=== PATIENT | male | born 1940 | race Caucasian/White ===

== ENCOUNTER 2017-03-14 05:55 | Inpatient (IN) | payer MEDICARE ==
[~2017-03-14] VITALS: Ht 170.2 cm; Wt 87.9 kg
[2017-03-14] VITALS (13 sets, daily range): BP systolic 111–131; BP diastolic 62–85; PULSE 86–136; RESP 16–17; TEMP 97.5–98.2; O2SAT 96–100
[2017-03-14] MEDS ORDERED: IOHEXOL 350 MG/ML 50 ML BTL (for Cath Lab) OTHER ONE (05:56)
[2017-03-14] MEDS ORDERED: RANI150T PO (07:02)
[2017-03-14] MEDS ORDERED: ASPI-516 CHEW (07:02)
[2017-03-14] MEDS ORDERED: NIAC500T5 PO (07:02)
[2017-03-14] MEDS ORDERED: WARF-23 PO (07:02)
[2017-03-14] MEDS ORDERED: OMEGCAP PO (07:02)
[2017-03-14] MEDS ORDERED: METO50TA PO (07:02)
[2017-03-14] MEDS ORDERED: TYLE325T PO (07:02)
[2017-03-14] MEDS ORDERED: HEPARIN-NS/PF INJ 1,000 ML ONE (08:36)
[2017-03-14] MEDS ORDERED: MIDAZOLAM HCL 2 MG/2 ML VIAL ONE (08:43)
[2017-03-14] MEDS ORDERED: HEPARIN SODIUM - IV 10,000 UNITS/10 ML VIAL ONE (08:45)
--- NOTE | 2017-03-14 09:29 | CATHPROC ---
[facility] HIS Report Study Information Study Number Admission Scheduled Start Study Start [id number] Mar 14 2017 5:55AM 03/14/2017 Mar 14 2017 8:39AM [facility] Cardiac Catheterization Admit Source Facility Department Other [facility] - Stock Sheets Cleaner Inspector Physician and Clinical Staff Initial Gallito Jang Employment Appeals Examinernir Morfin RN, Gibran Recorder Hailey Durant,RT(R) (BS) Scrub Willis Tejeda RCIS(BS) Scrub Butch Belle RN Procedures Performed Procedure Location (Site) Vessel Name Coronary Angiograms LCA Left Coronary Coronary Angiograms RCA Right Coronary Coronary Angiograms TORRES TORRES L Heart Cath Wire insertion Radial (right) Radial Art. Equipment Time Binder Stripper Hand Description Size Mfg Part Number Used/Scraped TRANSDUCER, TRUWAVE [id number] 08:44 [employer] CAMPOS * Used W/STOCKCOCK *[id number] *[id number] *[id number] 08:44 [employer] PACK, CCL CUSTOM * Used *[id number] 08:44 [employer] SUPPORT, ARTERIAL ADULT 33267 *[id number] Used [id number] 08:44 [employer]. PACER PEN, SKIN DUAL W/ RULER * Used *[id number] BAND, RADIAL COMPRESSION TR [id number] 09:16 [employer] MEDICAL 24CM Used SHORT 24 *[id number] SHEATH, FR6 RADIAL PRELUDE 08:44 [employer] FR 6 [id number] Used EASE 11CM [id number] 08:44 [employer] WIRE, EXCHANGE 260CM 3MMJ 260CM Used *[id number] 08:44 [employer] OMNIPAQUE, 350 MG, 150ML 150ML [id number] Used [id number] 08:44 [employer] BLANKET,WARM AIR CCL * Used *[id number] History: Current Medications Medication Dosage/Unit Route Frequency Last Date/Time Taken Beta Luke ASA Coumadin History: Allergies Allergy Reaction Kpajrfe-Lcw-Bxb Reductase Inhibitor History: Risk Factors Family History of Hypertension Dyslipidemia Previous VT Previous Heart Failure Premature CAD Yes Yes No No Yes Prior Valve Prior PCI Prior CABG Surgery No No No Cerebrovascular Peripheral Artery Chronic Lung On Dialysis Diabetes Disease Disease Disease No No No No No History: Stress Tests Stress or Imaging Studies Performed Yes Standard Exercise Stress Test No Stress Echo No Stress Test SPECT Stress Test SPECT Result Stress Test SPECT Ischemia Risk/Extent Yes Positive High Stress Test CMR No Cardiac CTA Coronary Calcium Score No No History: Other Current Smoker Method Quit Packs a Day No Cigarettes 39 Years Ago 1 Labs Hgb (g/dl) Hct (%) WBC (l/cumm) Platelets (thousands) 11.60-17.00 35.00-51.00 4.00-11.00 150.00-450.00 15.0 45.1 7 148 Glucose (mg/dl) BUN (mg/dl) Creatinine (mg/dl) BUN:Creatinine (1:x) 74.00-106.00 7.00-18.00 0.50-1.30 10.00-20.00 111 19 1.6 11.9 Na (meq/l) K (meq/l) 136.00-145.00 3.50-5.10 140 4.8 CPK-MB (ng/ML) 0.50-3.60 Not Drawn Medication Medication Total Dose (Bolus/Oral) Medication Total Dosage/Unit 1% XYLOCAINE 1 mL FENTANYL 50 mcg HEPARIN 3000 units NTG (IC) 200 mcg VERSED 2 mg Medications (Bolus/Oral) Medication Time Given Dosage/Unit Administered By Reason FENTANYL 03/14/2017 8:58:30 AM 50 mcg Gibran Morfin RN 50 mcg FENTANYL given in lab by Gibran Morfin RN in Left Antecubital via Peripheral IV. VERSED 03/14/2017 8:59:18 AM 2 mg Gibran Morfin RN 2 mg VERSED given in lab by Gibran Morfin RN in Left Antecubital via Peripheral IV. 1% XYLOCAINE 03/14/2017 9:01:06 AM 1 mL Gallito Armijo 1 mL 1% XYLOCAINE given in lab by Gallito Armijo in Right Radial via Subcutaneous. HEPARIN 03/14/2017 9:03:49 AM 3000 units Gibran Morfin RN 3000 units HEPARIN given in lab by Gibran Morfin RN in Left Antecubital via Peripheral IV. NTG (IC) 03/14/2017 9:04:12 AM 200 mcg Gallito Armijo 200 mcg NTG (IC) given in lab by Gallito Armijo in Right Radial via Intra-arterial. Medication (Drip) Medication Time Given Dosage/Unit Concentration/Unit Diluent (ml) Solution IV Solutions 03/14/2017 8:39:08 AM 0 mL (IV) 500 NaCl .9 IV Solutions given in lab by Gibran Morfin RN in Left Antecubital via Peripheral IV. Pump/Drip Flow = 20 ml/hr using NaCl .9. Initial Case Assessment Cardiovascular HR Rhythm NIBP Chest Pain 92 afib 132/94 0 Edema Present Skin color Skin None Normal Warm Dry Circulatory - Right Pulses Dorsalis Pedis Femoral Radial 2 3 1 Scale (0,1,2,3,4,d) Circulatory - Left Pulses Dorsalis Pedis Femoral Radial 2 3 Scale (0,1,2,3,4,d) Circulatory - Lower Extremities Color Lower Right Color Lower Left Normal Normal Neurological State Oriented to time-place- Alert Moves all extremities person Respiration - General Respiration Rate SpO2 (%) (B/min) 16 99 Chronological Log Time Study Chronological Log 8:33:41 Patient arrived via Bed. 8:33:45 Patient Name, D.O.B, / Armband Verified By R.N. 8:33:47 Consent signed by the physician and the patient and verified by the Stock Sheets Cleaner Inspector staff. 8:33:49 Pre-op and post- op instructions given; patient acknowledges understanding of instructions. 8:38:52 Verbal Stimulation=2 Physical Stimulation=2 Airway=2 Respiration=2 TOTAL=8. (0=absent, 1=li mited, 2=present) 8:38:54 Presedation assessment performed by Stock Sheets Cleaner Inspector RN. 8:38:59 Allens test performed on the right radial and ulnar artery. 8:39:00 Immediate Presedation assesment performed by physician. 8:39:03 Patient has been NPO for More than 6Hrs. 8:39:03 Skin Breakdown none per pt 8:39:04 Patient Warmer Placed on the Table. 8:39:06 Tena Prominences Protected 8:39:07 A # 20 IV was noted in the Antecubital (left). Grade = 0 IV Solutions given in lab by Gibran Morfin RN in Left Antecubital via Peripheral IV. Pump/Drip Fl ow = 20 ml/hr using NaCl 8:39:08 .9. 8:39:09 History and physical on the chart or being dictated. Assessment: Initial Case, HR=92 BPM, Rhythm=afib, KCXO=890/94 mmhg, Chest Pain=0, Edema=None, Color=Normal, Skin = Warm, Dry Right Pulses: Froylan Ped=2, Femoral=3, Radial=1 Left Pulses: Froylan Ped=2, Femoral=3 8:39:10 Lower Right Extremities: Color=Normal Lower Left Extremities: Color=Normal Neurological: State=Alert, Ox3, VERDE Respiration: Resp=16 B/min, SpO2=99 % Vitals capture started with the following parameters, Patient=Adult, Interval=5 min, Initial Pre tezbf=092 mmHg, 8:40:15 Deflation Rate=5 mmHg, Cuff placed on Right Arm 8:41:16 VU=255 bpm, JABN=498/94 mmhg, SpO2=99.0 %, Resp=17 B/min, Pain=0, Edelmira=10, Collier=2 8:45:37 Right Radial and righ groin prepped with 2% chlorhexidine, and draped after a 3 min. waiting time. 8:45:46 MZ=607 bpm, CTDU=224/99 mmhg, Resp=13 B/min, Pain=0, Edelmira=10, Collier=2 8:50:07 MD paged 8:50:33 MD responded 8:50:49 MU=799 bpm, WYFV=004/87 mmhg, SpO2=99.0 %, Resp=15 B/min, Pain=0, Edelmira=10, Collier=2 8:50:51 Reference ECG taken 8:52:19 Pressure channel 1 zeroed. 8:55:59 MD arrived. 8:56:29 CD=753 bpm, ZFEV=644/66 mmhg, SpO2=98.0 %, Resp=13 B/min, Pain=0, Edelmira=10, Collier=2 8:58:30 50 mcg FENTANYL given in lab by Gibran Morfin RN in Left Antecubital via Peripheral IV. Time Out. Correct patient, correct procedure, correct physician, power injector not loaded with contrast with surgical 8:58:58 team present. Time Out Concurred by MD and individual staff in procedure. 8:59:09 Case Start 8:59:18 2 mg VERSED given in lab by Gibran Morfin RN in Left Antecubital via Peripheral IV. 9:00:47 VD=617 bpm, TRNW=964/80 mmhg, SpO2=94.0 %, Resp=22 B/min, Pain=0, Edelmira=10, Collier=2 9:01:06 1 mL 1% XYLOCAINE given in lab by Gallito Armijo in Right Radial via Subcutaneous. 9:01:27 Access site was right Radial Artery. A SHEATH, FR6 RADIAL PRELUDE EASE 11CM FR 6 was advanced into the Radial (right) using the Jay Jay raymond ::11 technique. 9:03:11 In the Radial (right) the SHEATH, FR6 RADIAL PRELUDE EASE 11CM FR [address] by Butch Belle RN. 9:03:49 3000 units HEPARIN given in lab by Gibran Morfin RN in Left Antecubital via Peripheral IV. 9:04:12 200 mcg NTG (IC) given in lab by Gallito Armijo in Right Radial via Intra-arterial. A JR 5.0 INFINITI CATHETER FR 6 was advanced over a wire. OMNIPAQUE, 350 MG, 150ML 150ML was use d for 9:04:54 injections. 9:05:51 HR=98 bpm, VKPI=971/63 mmhg, SpO2=96.0 %, Resp=16 B/min, Pain=0, Edelmira=10, Collier=2 Recorded Pressure: LV, DJ=847, Condition=Condition 1 9:06:29 (Left Ventricle) LV 104/5/5 Recorded Pressure: LV, Ao, VP=919, Condition=Condition 1 9:06:49 (Left Ventricle) LV 95/3/4, (Aorta) Ao 97/55/75 9:07:21 The RCA was injected and visualized at various angles. OMNIPAQUE, 350 MG, 150ML 150ML used. After removing the current catheter a JL 3.5 INFINITI CATHETER FR 6 was advanced over a WIRE, EX CHANGE 260CM 9:08:06 3MMJ 260CM. Recorded Pressure: Ao, HR=99, Condition=Condition 1 9:10:32 (Aorta) Ao 106/63/82 9:10:46 DJ=359 bpm, FTSA=352/78 mmhg, SpO2=97.0 %, Resp=26 B/min 9:10:46 The LCA was injected and visualized at various angles. OMNIPAQUE, 350 MG, 150ML 150ML use d. 9:15:28 Vitals capture stopped. Vitals capture started with the following parameters, Patient=Adult, Interval=5 min, Initial P wiajotb=246 mmHg, 9:15:30 Deflation Rate=5 mmHg, Cuff placed on Right Arm 9:16:24 The TORRES was injected and visualized at various angles. OMNIPAQUE, 350 MG, 150ML 150ML use d. 9:16:41 A WIRE, EXCHANGE 260CM 3MMJ 260CM was inserted via Radial (right). 9:16:42 GO=699 bpm, ZBJK=858/73 mmhg, SpO2=98.0 %, Resp=17 B/min, Pain=0, Edelmira=10, Collier=2 9:16:52 Catheter was removed 9:16:54 Wire removed 9:17:07 Case End 9:17:18 Catheter(s) removed without difficulty Radial Compression Device Used. 12 mLs of air placed in BAND, RADIAL COMPRESSION TR SHORT 24 2 4CM. Affected 9:17:27 hand 100 % O2 saturation. 9:17:42 Cine recording checked. 9:17:45 Bedside Report will be given. 9:17:49 Contrast Scanned 9:17:54 A Left Heart Cath was performed. 9:20:52 DOCU called. Spoke to Robel. 9:21:06 IE=024 bpm, GOON=486/60 mmhg, SpO2=98.0 %, Resp=12 B/min, Pain=0, Edelmira=10, Collier=2 9:26:05 HR=94 bpm, RDQG=549/63 mmhg, Resp=15 B/min, Pain=0, Edelmira=10, Collier=2 9:27:57 [facility] - Cont[facility] Media Used In Study Contrast Total Opened (mL) Total Used (mL) Total Wasted (mL) Omnipaque 40 40 0 End Study - Maximum Contrast Load Max Contrast Load (mL) 263.1 End Study - Radiation Exposure Fluoro Time (minutes) 2.2 End Study - Sheaths Sheaths Pulled By Sheath Hold Time (min) Butch Belle End Study - Patient Disposition Complications Transferred To Interventional Outcome No Stock Sheets Cleaner Inspector Holding No attempt made
[2017-03-14] MEDS ORDERED: BACITRACIN OINT 0.9 GM PKT TOP ONE ×2 (09:30→10:45)
[2017-03-14] MEDS ORDERED: MISC INFORMATION XX ONE ×2 (09:30)
--- NOTE | 2017-03-14 09:34 | ECHRPT ---
Indication: CARDIOMYOPATHY CONCLUSIONS Mildly dilated left ventricle. Wall thickness is normal. The left ventricular systolic function is severely reduced with an estimated ejection fraction in th e range of 25-30%. There is diffuse global hypokinesis with distinct regional wall motion abnormalities. The left atrial size is moderately dilated. The right atrial size is moderately dilated. Moderate mitral valve regurgitation. Aortic valve sclerosis is present. Trace aortic valve regurgitation. There is mild tricuspid valve regurgitation. The estimated pulmonary arterial pressure is 43.4 mmHg. BP: 131 / 85 HR: Rhythm: Atrial fibrillation, Atrial flut ter MEASUREMENTS (Male / Female) Normal Values Technical Quality:Fair 2D ECHO LV Diastolic Diameter PLAX 5.6 cm 4.2 - 5.9 / 3.9 - 5.3 cm LV Systolic Diameter PLAX 5.0 cm IVS Diastolic Thickness 0.8 cm 0.6 - 1.0 / 0.6 - 0.9 cm LVPW Diastolic Thickness 0.8 cm 0.6 - 1.0 / 0.6 - 0.9 cm LV Relative Wall Thickness 0.3 LVOT Diameter 2.2 cm Aortic Root Diameter 3.4 cm LA Systolic Diameter LX 3.8 cm 3.0 - 4.0 / 2.7 - 3.8 cm LA Volume Index 63.9 cm/m 16 - 28 cm/m M-MODE AV Cusp Separation MM 2.3 cm DOPPLER AV Peak Velocity 81.3 cm/s AV Peak Gradient 2.6 mmHg AV Mean Gradient 1.3 mmHg AV Velocity Time Integral 12.7 cm LVOT Peak Velocity 44.1 cm/s LVOT Peak Gradient 0.8 mmHg LVOT Velocity Time Integral 7.0 cm AV Area Cont Eq vti 2.1 cm AV Area Cont Eq pk 2.1 cm Mitral E Point Velocity 75.5 cm/s LV E' Lateral Velocity 15.4 cm/s Mitral E to LV E' Lateral Ratio 4.9 LV E' Septal Velocity 10.3 cm/s Mitral E to LV E' Septal Ratio 7.4 TR Peak Velocity 289.0 cm/s TR Peak Gradient 33.4 mmHg Right Atrial Pressure 10.0 mmHg Pulmonary Artery Systolic Pressu 43.4 mmHg Right Ventricular Systolic Press 43.4 mmHg PV Peak Velocity 48.4 cm/s PV Peak Gradient 0.9 mmHg FINDINGS LEFT VENTRICLE Mildly dilated left ventricle. Wall thickness is normal. The left ventricular systolic function is severely reduced with an estimated ejection fraction in th e range of 25-30%. There is diffuse global hypokinesis with distinct regional wall motion abnormalities. RIGHT VENTRICLE Normal right ventricular size and systolic function. LEFT ATRIUM The left atrial size is moderately dilated. RIGHT ATRIUM The right atrial size is moderately dilated. ATRIAL SEPTUM Normal atrial septal thickness without atrial level shunting by limited color doppler interrogation. AORTA The aortic root and proximal ascending aorta are normal in size on limited imaging. MITRAL VALVE Moderate mitral valve regurgitation. AORTIC VALVE Trileaflet aortic valve. Aortic valve sclerosis is present. Trace aortic valve regurgitation. TRICUSPID VALVE There is mild tricuspid valve regurgitation. The estimated pulmonary arterial pressure is 43.4 mmHg. PULMONARY VALVE No pulmonary valve regurgitation or stenosis. VESSELS The inferior vena cava is normal in size. PERICARDIUM No pericardial effusion. Gallito Armijo MD, FACC (Electronically Signed) Final Date:14 March 2017 09:33
--- NOTE | 2017-03-14 09:47 | MA ---
cc: SIMRAN WADE DATE: 03/14/2017 PROCEDURE PERFORMED 1. Fluoroscopy with interpretation. 2. Left heart catheterization. 3. Coronary angiography. METHOD The risks, benefits and alternatives were discussed with the patient. The patient understood and consented to the procedure. The patient was brought into the catheterization lab and placed on the catheterization table. The right wrist was prepped and draped in sterile fashion. The right wrist was anesthetized with 2% lidocaine. The right radial artery was cannulated and a 6 Upper Sorbian, 7 cm sheath was placed without difficulty. 200 mcg of intra-arterial nitroglycerin in addition to 3000 units of intravenous heparin was administered. LEFT HEART CATHETERIZATION Intraventricular hemodynamics measured at 115/5 mmHg. No aortic stenosis by transaortic valvular pullback gradient. CORONARY ANGIOGRAPHY 1. The left main coronary is angiographically normal. 2. The left anterior descending coronary has a 90% ostial stenosis which leads to a large diagonal branch which also has a 90% bifurcation stenosis. The remainder of the left anterior descending and diagonal branches are widely patent. 3. The left circumflex is a dominant vessel giving rise to a posterior descending branch. The ostium of the left circumflex has an angulated 30% stenosis. There is a small obtuse marginal branch with a 75% stenosis but otherwise the circumflex territory has only minor luminal irregularities. 4. The right coronary is non-dominant but angiographically normal. CONCLUSIONS 1. 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 2. Normal left-sided filling pressures. PLAN Given the location is high risk for plaque shift into a dominant circumflex, in addition to there being a bifurcation stenosis at the level of the left main, he would not be an ideal percutaneous revascularization candidate. He has good targets for left anterior descending and diagonal branch bypass. His risk is considerably higher for intervention also given his cardiomyopathy which is ischemic. Will consult cardiothoracic surgery. Will initiate a heparin drip. MD RONAK Saha/MATT /9:37 AM /9:45 AM
[2017-03-14 09:51] LABS: APTT (PATIENT) 56.3 SEC (24.3-30.1); INTERNATIONAL NORMALIZED RATIO 1.2 RATIO; PROTHROMBIN TIME - PATIENT 13.5 SEC (9.8-11.6)
[2017-03-14] MEDS ORDERED: HEPARIN-D5W 25,000 U/250 ML 250 ML IV PRN (11:30)
[2017-03-14] MEDS: NS 1000 ML @100 MLS/HR IV SCH ×4 (12:00→20:15)
--- NOTE | 2017-03-14 12:16 | RADRPT ---
EXAM DATE/TIME: 03/14/2017 11:22 [facility] COMPARISON: No previous studies available for comparison. INDICATIONS : Pre op CABG. MEDICAL HISTORY : Congestive heart failure. Hypertension. A FIB. Hyperlipidemia. SURGICAL HISTORY : Heart catheteriazation. ENCOUNTER: Initial ACUITY: 1 day PAIN SCORE: 0/10 LOCATION: Bilateral neck. PEAK SYSTOLIC VELOCITIES (cm/sec): ICA/CCA RATIO: Right: 3.0 Left: 1.3 ICA: Right: 131 Left: 89 CCA: Right: 44 Left: 70 ECA: Right: 50 Left: 67 VERTEBRAL: Right: 57 antegrade Left: 45 antegrade Elevated flow velocities and ICA/CCA ratios have been found to correlate with increased degrees of vessel stenosis, calculated as percentage of diameter relative to a normal segment of distal ICA/CCA FINDINGS: RIGHT CAROTID: Mild noncalcified plaque seen at the bifurcation. No significant stenosis is visualized. The wavefor ms are within normal limits. There is mild elevation in the right internal carotid artery but no sign ificant stenosis is demonstrated. LEFT CAROTID: Mild calcified plaque in the bifurcation. No significant stenosis is visualized. The waveforms are w ithin normal limits. VERTEBRAL ARTERIES: Antegrade flow is seen in both vertebral arteries. MISCELLANEOUS: None. CONCLUSION: 1. There is mild atherosclerotic plaquing bilaterally. 2. No focal high-grade or hemodynamically significant stenosis is demonstrated. Jaswinder Rubi MD on March 14, 2017 at 12:13 Board Certified Radiologist. This report was verified electronically.
--- NOTE | 2017-03-14 12:19 | RADRPT ---
EXAM DATE/TIME: 03/14/2017 11:34 [facility] COMPARISON: No previous studies available for comparison. INDICATIONS : Pre op cardiac surgery. MEDICAL HISTORY : Hypertension. Congestive heart failure. A FIB. Hyperlipidemia. SURGICAL HISTORY : Heart catheteriazation. ENCOUNTER: Initial ACUITY: 1 day PAIN SCORE: 0/10 LOCATION: Bilateral legs. TECHNIQUE: Venous ultrasound of the left and right leg was performed from the inguinal ligament to the proximal calf. Real-time, color Doppler and spectral tracing, compression and augmentation techniques were us ed. FINDINGS: RIGHT LEG: There is normal compressibility of the deep venous system from the inguinal region to the proximal ca lf. No echogenic clot is seen in the lumen of the common femoral, femoral, popliteal, and posterior tibial veins. There is a normal response of the venous system to proximal and distal augmentation an d respiration. LEFT LEG: There is normal compressibility of the deep venous system from the inguinal region to the proximal ca lf. No echogenic clot is seen in the lumen of the common femoral, femoral, popliteal, and posterior tibial veins. There is a normal response of the venous system to proximal and distal augmentation an d respiration. CONCLUSION: No evidence of DVT. Jaswinder Rubi MD on March 14, 2017 at 12:18 Board Certified Radiologist. This report was verified electronically.
--- NOTE | 2017-03-14 12:20 | RADRPT ---
EXAM DATE/TIME: 03/14/2017 11:43 [facility] COMPARISON: No previous studies available for comparison. INDICATIONS : Pre op cardiac surgery. MEDICAL HISTORY : Hypertension. Congestive heart failure. A FIB. Hyperlipidemia. SURGICAL HISTORY : Heart catheterization. ENCOUNTER: Initial ACUITY: 1 day PAIN SCORE: 0/10 LOCATION: Bilateral legs. GREATER SAPHENOUS VEIN THIGH: PROXIMAL: Right 5 mm Left 9 mm MID: Right 3 mm Left 4 mm DISTAL: Right 2 mm Left 3 mm CALF: PROXIMAL: Right 1 mm Left 2 mm MID: Right 1 mm Left 1 mm DISTAL: Right 1 mm Left 1 mm FINDINGS: The venous system of the lower extremities are patent by color Doppler imaging. Measurements of the leg veins (in mm) are listed above. CONCLUSION: Venous mapping as above Jaswinder Rubi MD on March 14, 2017 at 12:19 Board Certified Radiologist. This report was verified electronically.
[2017-03-14 14:29] LABS: HEMATOCRIT 42.1 % (39.0-51.0); MEAN CELL VOLUME 90.3 FL (80.0-100.0); MEAN CORPUSCULAR HGB CONC 34.3 % (32.0-36.0); PLATELET COUNT 133 TH/MM3 (150-450); RED BLOOD COUNT 4.66 MIL/MM3 (4.50-5.90); RED CELL DISTRIBUTION WIDTH 14.2 % (11.6-17.2); REVIEW FLAG FINAL; WHITE BLOOD COUNT 6.6 TH/MM3 (4.0-11.0)
[2017-03-14 15:13] LABS: BLOOD, URINE NEG (NEG); COMMENT (UR) CULT NOT INDICATED; CULTURE IF INDICATED CULT NOT INDICATED; GLUCOSE,URINE 150 mg/dL (NEG); KETONE, URINE NEG (NEG); NITRITE,URINE NEG (NEG); PH, URINE 5.5 (5.0-8.5); URINE COLOR YELLOW (YELLW/STRAW)
--- NOTE | 2017-03-14 16:20 | PD.CAR.PN ---
CVT Progress Note Subjective/Hospital Course: sts data discussed with pt RISK SCORES About the STS Risk Calculator Procedure: CAB Only Risk of Mortality: 2.77% Morbidity or Mortality: 20.808% Long Length of Stay: 7.256% Short Length of Stay: 34.531% Permanent Stroke: 1.333% Prolonged Ventilation: 10.514% DSW Infection: 0.321% Renal Failure: 5.826% Reoperation: 8.324% Objective: Vital Signs Date Time Temp Pulse Resp B/P (MAP) Pulse Ox O2 Delivery O2 Flow Rate FiO2 03/14/17 16:00 102 03/14/17 15:00 109 03/14/17 15:00 97.8 101 16 123/72 (89) 97 03/14/17 14:11 108 03/14/17 13:26 97.5 105 16 111/62 (78) 97 03/14/17 13:26 102 03/14/17 09:45 98 Room Air 03/14/17 06:41 97.6 98 17 131/85 (100) 100 Labs: Laboratory Tests Test 03/14/17 09:20 03/14/17 14:12 03/14/17 14:42 Prothrombin Time 13.5 SEC (9.8-11.6) Prothromb Time International Ratio 1.2 RATIO Activated Partial Thromboplast Time 56.3 SEC (24.3-30.1) White Blood Count 6.6 TH/MM3 (4.0-11.0) Red Blood Count 4.66 MIL/MM3 (4.50-5.90) Hemoglobin 14.5 GM/DL (13.0-17.0) Hematocrit 42.1 % (39.0-51.0) Mean Corpuscular Volume 90.3 FL (80.0-100.0) Mean Corpuscular Hemoglobin 31.0 PG (27.0-34.0) Mean Corpuscular Hemoglobin Concent 34.3 % (32.0-36.0) Red Cell Distribution Width 14.2 % (11.6-17.2) Platelet Count 133 TH/MM3 (150-450) Mean Platelet Volume 9.4 FL (7.0-11.0) Urine Color YELLOW (YELLW/STRAW) Urine Turbidity CLEAR (CLEAR) Urine pH 5.5 (5.0-8.5) Urine Specific [place] 1.047 (1.002-1.035) Urine Protein TRACE mg/dL (NEG-TRACE) Urine Glucose (UA) 150 mg/dL (NEG) Urine Ketones NEG mg/dL (NEG) Urine Occult Blood NEG (NEG) Urine Nitrite NEG (NEG) Urine Bilirubin NEG (NEG) Urine Urobilinogen LESS THAN 2.0 MG/DL (LESS Urine Leukocyte Esterase NEG (NEG) Urine RBC 1 /hpf (0-3) Urine WBC 1 /hpf (0-5) Microscopic Urinalysis Comment CULT NOT INDICATED Result Diagram: 03/14/17 1412 Kandice Snyder Mar 14, 2017 16:20
[2017-03-14] MEDS ORDERED: CEFAZOLIN INJ 500 MG in SODIUM CHLORIDE 0.9% IRR BTL 500 ML IRRIGATION SCH (16:30)
[2017-03-14] MEDS ORDERED: CHLORHEXIDINE GLUCONATE 4% SOLN 120 ML BTL TOPICAL SCH (16:30)
[2017-03-14] MEDS ORDERED: ceFAZolin 2 GM PREMIX 50 ML IV SCH (16:30)
[2017-03-14] MEDS ORDERED: SODIUM CHLORIDE 0.9% FLUSH 10 ML FLUSH IV FLUSH PRN (16:30)
[2017-03-14] MEDS ORDERED: PAPAVERINE INJ 60 MG, NITROGLYCERIN INJ 100 MCG, DILTIAZEM INJ 100 MG in SODIUM CHLORID... IRRIGATION SCH (16:30)
[2017-03-14] MEDS ORDERED: METOPROLOL TARTRATE 25 MG TAB PO SCH (16:30)
[2017-03-14] MEDS ORDERED: ATROPINE SULFATE 1 MG/10 ML SYRINGE ONE (16:53)
[2017-03-14] MEDS ORDERED: EPINEPHrine HCL (1:10,000) 1 MG/10 ML SYRINGE ONE (16:53)
[2017-03-14] MEDS ORDERED: DEXTROSE 50% IN WATER 50 ML VIAL(D50) IV PUSH PRN (17:00)
[2017-03-14] MEDS ORDERED: GLUCAGON 1 MG/ML VIAL OTHER PRN (17:00)
[2017-03-14 17:21] LABS: HEMOGLOBIN A1b 1.7 %; HEMOGLOBIN Ao 84.3 %; HEMOGLOBIN LA1C 2.4 %; HEMOGLOBIN P3 5.6 %
[2017-03-14 17:53] LABS: AUTOMATED NEUTROPHIL # 4.8 TH/MM3 (1.8-7.7); BASOPHIL % 0.6 % (0.0-2.0); EOSINOPHIL # 0.1 TH/MM3 (0-0.4); EOSINOPHIL % 1.3 % (0.0-4.0); HEMATOCRIT 43.6 % (39.0-51.0); HEMO FLAGS DIFF FINAL; LYMPH % 19.2 % (9.0-44.0); LYMPHOCYTE # 1.4 TH/MM3 (1.0-4.8); MEAN CELL VOLUME 90.7 FL (80.0-100.0); MEAN CORPUSCULAR HEMOGLOBIN 31.2 PG (27.0-34.0); MEAN CORPUSCULAR HGB CONC 34.4 % (32.0-36.0); MONO % 10.8 % (0.0-8.0); NEUT % 68.1 % (16.0-70.0); PLATELET COUNT 136 TH/MM3 (150-450); RED CELL DISTRIBUTION WIDTH 13.8 % (11.6-17.2)
[2017-03-14] MEDS ORDERED: INSULIN REGULAR (IV INFUSION) 100 UNITS in SODIUM CHLORIDE 0.9% INJ 99 ML IV PRN (18:00)
[2017-03-14 18:01] LABS: APTT (PATIENT) 24.3 SEC (24.3-30.1)
[2017-03-14 18:13] LABS: ALT (GPT) 30 U/L (12-78); ANION GAP 9 MEQ/L (5-15); AST (GOT) 26 U/L (15-37); BICARBONATE 25.8 MEQ/L (21.0-32.0); BLOOD UREA NITROGEN 25 MG/DL (7-18); CHLORIDE 105 MEQ/L (98-107); GLOMERULAR FILTRATION RATE 42 ML/MIN (>89); POTASSIUM 4.4 MEQ/L (3.5-5.1); SODIUM (NA) 140 MEQ/L (136-145)
[2017-03-14 18:16] LABS: ALKALINE PHOSPHATASE 51 U/L (45-117); TOTAL BILIRUBIN ADULT 0.7 MG/DL (0.2-1.0)
--- NOTE | 2017-03-14 18:31 | RADRPT ---
EXAM DATE/TIME: 03/14/2017 17:05 [facility] COMPARISON: No previous studies available for comparison. INDICATIONS : Evaluate for pneumonia, pneumothorax, or communicable disease. Pre-op CABG. MEDICAL HISTORY : Hypertension. Congestive heart failure. A FIB. Hyperlipidemia. SURGICAL HISTORY : Heart catheteriazation. ENCOUNTER: Initial ACUITY: 1 day PAIN SCORE: 0/10 LOCATION: Bilateral chest FINDINGS: Frontal and lateral views of the chest demonstrate a normal-sized cardiac silhouette. No effusion, co nsolidation, or pneumothorax is identified. Bones and soft tissues demonstrate no acute finding. EKG lines overlie the patient. CONCLUSION: No acute cardiopulmonary abnormality is identified. Scar Gonzales MD on March 14, 2017 at 18:29 Board Certified Radiologist. This report was verified electronically.
[2017-03-14] MEDS ORDERED: METOPROLOL TARTRATE 50 MG TAB PO ONE (19:00)
[2017-03-14] MEDS ORDERED: METOPROLOL TARTRATE 50 MG TAB PO PRN (20:00)
[2017-03-14] MEDS: SODIUM CHLORIDE 0.9% FLUSH 10 ML FLUSH IV FLUSH SCH (20:15)
[2017-03-15] VITALS (18 sets, daily range): BP systolic 109–151; BP diastolic 45–99; PULSE 87–177; RESP 10–22; TEMP 97.4–99.7; O2SAT 95–100
[2017-03-15 02:51] LABS: AUTOMATED NEUTROPHIL # 5.1 TH/MM3 (1.8-7.7); BASOPHIL % 0.5 % (0.0-2.0); EOSINOPHIL # 0.2 TH/MM3 (0-0.4); EOSINOPHIL % 2.1 % (0.0-4.0); HEMATOCRIT 44.4 % (39.0-51.0); HEMO FLAGS DIFF FINAL; LYMPH % 24.4 % (9.0-44.0); LYMPHOCYTE # 1.9 TH/MM3 (1.0-4.8); MEAN CELL VOLUME 91.8 FL (80.0-100.0); MEAN CORPUSCULAR HEMOGLOBIN 30.7 PG (27.0-34.0); MEAN CORPUSCULAR HGB CONC 33.5 % (32.0-36.0); MONO % 8.5 % (0.0-8.0); NEUT % 64.5 % (16.0-70.0); PLATELET COUNT 128 TH/MM3 (150-450); RED BLOOD COUNT 4.84 MIL/MM3 (4.50-5.90); RED CELL DISTRIBUTION WIDTH 14.3 % (11.6-17.2); WHITE BLOOD COUNT 7.9 TH/MM3 (4.0-11.0)
[2017-03-15] MEDS: NS 1000 ML @100 MLS/HR IV SCH ×5 (03:00→23:00)
[2017-03-15 03:10] LABS: BICARBONATE 29.8 MEQ/L (21.0-32.0)
[2017-03-15] MEDS ORDERED: METOPROLOL TARTRATE 25 MG TAB PO ONE ×2 (07:00→22:15)
--- NOTE | 2017-03-15 07:39 | MB ---
cc: DIYA ROSADO MD DATE OF CONSULTATION: 04/03/2017 REASON FOR CONSULTATION: A 76-year-old male, date of ; 1940, with recent complaint of some chest tightness, fatigue. He has had some fatigue off and on since November. He thought that it was some heat exhaustion but it has been going on since. He has seen Dr. Armijo in the past for chronic atrial fibrillation and has been on Coumadin. Because of the history of shortness of breath he underwent cardiac catheterization which showed an ejection fraction of 25%, proximal left anterior descending 90%. The diagonal 90%. The circ 30%. The obtuse marginal had 75% stenosis. We were consulted to evaluate for coronary artery bypass grafting. He underwent a 2-D echo prior to his cath this morning which showed an ejection fraction of 25-30%, diffuse global hypokinesis, left atrial size moderately dilated. The right atrial size moderately dilated, moderate mitral regurgitation, mild tricuspid regurgitation. PAST MEDICAL HISTORY: His past medical history includes chronic atrial fibrillation on Coumadin therapy which has since been held. 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 Hyperlipidemia. PAST SURGICAL HISTORY: Surgeries include colonoscopy Tonsillectomy with adenoidectomy. ALLERGIES HE IS ALLERGIC TO STAPH STATINS MEDICATIONS home meds include 1. Aspirin 81 mg. 2. Metoprolol 50 b.i.d. 3. Niacin 500 4. omega 3 5. red yeast rice. 6. Coumadin 5 mg. FAMILY HISTORY Noncontributory SOCIAL HISTORY The patient . Smoked for approximately 25 years, quit 37 years ago. Occasional glass of wine. REVIEW OF SYSTEMS IN GENERAL: No night sweats, fever, heat and cold intolerance. SKIN: No psoriasis, itching or hives. HEAD, EYES, EARS, NOSE, AND THROAT: No blurred vision, hearing loss. RESPIRATORY: Positive for shortness of breath. Occasional cough. CARDIOVASCULAR SYSTEM: As above in HPI. GASTROINTESTINAL: No diarrhea, vomiting. GENITOURINARY: No burning frequency, urgency. CENTRAL NERVOUS SYSTEM: No history of TIA, CVA, seizure disorder, ENDOCRINOLOGY: No history of diabetes. PHYSICAL EXAMINATION: VITAL SIGNS: on exam blood pressure 120/70, heart rate 108, afebrile. IN GENERAL: Patient is awake, alert in no acute distress. HEAD, EYES, EARS, NOSE, AND THROAT: Head is normocephalic, atraumatic. Pupils equal and reactive. Oral mucosa pink, moist. NECK: Supple. No JVD. HEART: Heart sounds S1-S2, Irregular rate and rhythm. No audible rubs, murmurs, gallops. LUNGS: Clear to auscultation. No wheezes, rales or rhonchi. ABDOMEN: Soft, nontender. No masses or organomegaly. EXTREMITIES: No cyanosis, clubbing or edema. LABORATORY FINDINGS: Lab work shows hemoglobin 15, hematocrit of 45, white cell count 7, platelet count 148. BUN 19, creatinine 1.68, INR 1.2. Carotid ultrasound is unremarkable. No focal high-grade significant stenosis demonstrated. No evidence of DVT, pulmonary function testing is still pending. At time the patient is being evaluated for coronary artery bypass grafting x2 to the LAD and diagonal. Possible left atrial appendage excision and planing will be in the a.m. STS score of risk mortality is 2.7. Further planning per Dr. Diya Rosado. DICTATED BY: RAMY Yung Diya Koch /4:31 PM /7:39 AM
[2017-03-15] MEDS: SODIUM CHLORIDE 0.9% FLUSH 10 ML FLUSH IV FLUSH SCH ×3 (08:45→20:41)
[2017-03-15] MEDS ORDERED: VANCOMYCIN HCL 1000 MG VIAL ONE (09:52)
[2017-03-15] MEDS ORDERED: HEPARIN SODIUM - SQ 10,000 UNITS/ML VIAL ONE ×2 (09:52→12:00)
[2017-03-15] MEDS ORDERED: ceFAZolin 2 GM PREMIX 50 ML ONE (09:52)
--- NOTE | 2017-03-15 10:40 | PD.CAR.PN ---
CVT Progress Note Subjective/Hospital Course: A 76-year-old male, with recent complaint of some chest tightness, fatigue off and on since November. He thought that it was some heat exhaustion but it has been going on since. He has seen Dr. Armijo in the past for chronic atrial fibrillation and has been on Coumadin. Because of the history of shortness of breath he underwent cardiac catheterization which showed an ejection fraction of 25%, proximal left anterior descending 90%. The diagonal 90%. The circ 30% . The obtuse marginal had 75% stenosis. We were consulted to evaluate for coronary artery bypass grafting. He underwent a 2-D echo prior to his cath this morning which showed an ejection fraction of 25-30%, diffuse global hypokinesis, left atrial size moderately dilated. The right atrial size moderately dilated, moderate mitral regurgitation, mild tricuspid regurgitation. PAST MEDICAL HISTORY: chronic atrial fibrillation on Coumadin, CAD , Chronic kidney disease stage 2-3 , Cardiomyopathy, Hypertension, Hyperlipidemia 03/15 pt for surgery today Objective: Vital Signs Date Time Temp Pulse Resp B/P (MAP) Pulse Ox O2 Delivery O2 Flow Rate FiO2 03/15/17 09:02 96 03/15/17 08:00 97.8 108 16 135/97 (110) 98 03/15/17 08:00 108 03/15/17 07:03 106 03/15/17 06:00 101 03/15/17 05:30 98.3 102 16 151/99 (116) 100 03/15/17 05:00 106 03/15/17 04:00 96 03/15/17 03:00 87 03/15/17 02:00 97 03/15/17 01:00 95 03/15/17 00:00 94 03/14/17 23:30 98.2 100 16 125/77 (93) 98 03/14/17 23:00 86 03/14/17 22:00 94 03/14/17 21:00 96 03/14/17 20:00 98 03/14/17 20:00 98.1 105 16 114/77 (89) 96 03/14/17 19:00 136 03/14/17 18:09 126 03/14/17 17:00 114 03/14/17 16:00 102 03/14/17 15:00 109 03/14/17 15:00 97.8 101 16 123/72 (89) 97 03/14/17 14:11 108 03/14/17 13:26 97.5 105 16 111/62 (78) 97 03/14/17 13:26 102 Labs: Laboratory Tests Test 03/15/17 02:28 White Blood Count 7.9 TH/MM3 (4.0-11.0) Red Blood Count 4.84 MIL/MM3 (4.50-5.90) Hemoglobin 14.9 GM/DL (13.0-17.0) Hematocrit 44.4 % (39.0-51.0) Mean Corpuscular Volume 91.8 FL (80.0-100.0) Mean Corpuscular Hemoglobin 30.7 PG (27.0-34.0) Mean Corpuscular Hemoglobin Concent 33.5 % (32.0-36.0) Red Cell Distribution Width 14.3 % (11.6-17.2) Platelet Count 128 TH/MM3 (150-450) Mean Platelet Volume 9.2 FL (7.0-11.0) Neutrophils (%) (Auto) 64.5 % (16.0-70.0) Lymphocytes (%) (Auto) 24.4 % (9.0-44.0) Monocytes (%) (Auto) 8.5 % (0.0-8.0) Eosinophils (%) (Auto) 2.1 % (0.0-4.0) Basophils (%) (Auto) 0.5 % (0.0-2.0) Neutrophils # (Auto) 5.1 TH/MM3 (1.8-7.7) Lymphocytes # (Auto) 1.9 TH/MM3 (1.0-4.8) Monocytes # (Auto) 0.7 TH/MM3 (0-0.9) Eosinophils # (Auto) 0.2 TH/MM3 (0-0.4) Basophils # (Auto) 0.0 TH/MM3 (0-0.2) CBC Comment DIFF FINAL Differential Comment Activated Partial Thromboplast Time 36.0 SEC (24.3-30.1) Blood Urea Nitrogen 23 MG/DL (7-18) Creatinine 1.71 MG/DL (0.60-1.30) Random Glucose 112 MG/DL (74-106) Calcium Level 9.0 MG/DL (8.5-10.1) Sodium Level 141 MEQ/L (136-145) Potassium Level 5.0 MEQ/L (3.5-5.1) Chloride Level 106 MEQ/L (98-107) Carbon Dioxide Level 29.8 MEQ/L (21.0-32.0) Anion Gap 5 MEQ/L (5-15) Estimat Glomerular Filtration Rate 39 ML/MIN (>89) Result Diagram: 03/15/1722703/15/17227 (1) Coronary artery disease (2) Hyperlipemia (3) Hypertension (4) Chronic a-fib Kandice Snyder [facility] Mar 15, 2017 10:40
--- NOTE | 2017-03-15 10:45 | HHI.FF ---
Face to Face Verification Diagnosis: (1) S/P CABG (coronary artery bypass graft) (2) Coronary artery disease (3) Hyperlipemia (4) Hypertension (5) Chronic a-fib Home Health Nursing Order: Signs/symptoms of disease process Medication education-adverse effect Wound care and dressing changes Nursing assessment with vital signs Instructions: Heart and Vascular Surgery patients *Special attention to sternal dressing Mandatory frequency Assess and evaluation, 4 days in a row The next week 3X week 2 times a week for 4 weeks 1 time a week for 5 weeks Schedule Heart and Vascular patients for full 60 day certification period Initial visit Review Open Heart Surgery Discharge Instructions (Sternal precautions, Activity, Elastic hose, Incision care, Driving, Incentive spirometry, Smoking, [place], Work and other) Need Betadine to paint incision Medication reconciliation Importance of follow up care/ check on appointments Make calendar record temperature daily When to call [facility] nurse, review instructions, phone list Incentive Spirometry, demonstration Visit 1- Begin discharge instruction for patient family and/ or caregiver using teach back method- Signs and symptoms of infection Disease characteristics Medicines and side effects Foods and nutrition/ appetite Infection control/ hand washing/ hygiene Visit 2- Continue teaching Discharge instructions- include additional information on smoking cessation , sternal dressing (sternal vac) Visit 3- Continue teaching- Cough and deep breathing, incision monitoring. Choose my plate Visit 4- Continue teaching- Discuss limitations Discuss how they are feeling Discuss progress toward goals Remaining visits- continue teaching and monitoring PREVENA Single Use Negative Wound Therapy System Caregiver Instruction Sheet 1. A Prevena dressing system was applied to the chest incision during surgery , to promote wound healing. It works via a suction device (negative pressure wound therapy) to remove low to moderate levels of exudate (drainage) and infectious materials. We recommend that the device stay in place for up to seven days, from day of surgery. 2. Day of Surgery___03/15/17 Day of Removal __03/22/17 3. The dressing should only be removed by a health career and transition teacher. Please arrange removal of device to coincide with Home Health visit and or with Nursing staff at Rehab 4. If skin reddening or irritation of skin occurs, or excessive drainage, please notify the Cardiovascular Surgeons office at [phone]. 5. Light showering is permissible; however the pump should be disconnected and placed in safe location, where it will not get wet. The dressing should not be exposed to direct spray or submerged in water. No bath tub / shower only. Ensure the end of the tubing attached to the dressing is facing down so that water does not enter the top of the tube. 6. To remove Prevena dressing: press purple button to turn off device / remove the suction. Then disconnect the tubing from the pump. The fixation strips should be stretched away from the skin and the dressing lifted at one corner and peeled back until it has been fully removed. 7. After removal, it is ok to shower daily using liquid dial soap and clean wash cloth, rinse and pat dry, and leave incision open to air dry. For any concerns regarding Prevena dressing, and or wounds, please contact Kayla aCsas, patient navigator at [phone] or notify the Cardiovascular Surgeons office at [phone]. Incentive spirometry Q1 hr x 10, while awake, also use acapella device hourly whole awake Sternal Breast Bone Precautions: NO pushing or pulling, ( pt must use sternal pillow to support chest with all activities and with coughing ( takes up to 3 months breast bone to heal ) Daily incision care: ok to shower daily, no tub bath. Wash all incisions with liquid dial soap, clean wash cloth to each site, rinse and pat dry. Observe for any signs of infection, such as drainage which is dark yellow, rucker, green or foul smelling. Immediately report to the surgeon any drainage from the chest incision, or legs, and for any abnormal drainage from the chest tube sites. Notify surgeon if any temp >101.5 degrees F. When specialty dressing removed/ or if you do not have one, continue to shower daily as above, then rinse and pat incision dry and paint with betadine daily x 5 days. Allow steri strips to fall off if you have any. Avoid lotions, creams, salves, oils, etc. for the first month Please see attached forms for additional instructions regarding post Open Heart specialty wound vacuum dressings. KATI or Prevena , Dressing to be removed by Nursing staff on __// F/U appointment: as per DC instructions: PCP in 2 weeks, CV surgeon 2 weeks, Web User Experience Strategist 3-4 weeks For any questions regarding incisions/ dressing / meds / post op care or above Symptoms, Monday 8am-5pm Heart & Vascular Surgery Office ( Dr. Callejas & Dr. Snyder), After Hours / Nights (5pm -8am) Weekends and Holidays Please call [facility] Cardiac [facility] Unit ([facility]) Charge Nurse I have seen patient Scar Joseph on 03/15/17. My clinical findings support the need for the requested home health care services because: Deconditioned w/ increased weakness I certify that my clinical findings support that this patient is homebound because: Post-op weakness Kandice Snyder Mar 15, 2017 10:45
[2017-03-15 11:32] LABS: APTT (PATIENT) 28.9 SEC (24.3-30.1)
[2017-03-15] MEDS ORDERED: DEXMEDETOMIDINE HCL 200 MCG/2 ML VIAL ONE (15:12)
[2017-03-15] MEDS ORDERED: POTASSIUM CHLOR 20 MEQ PREMIX 100 ML ONE (15:41)
[2017-03-15] MEDS ORDERED: LACTATED RINGER'S 1000 ML INJ 500 ML IV PRN (15:57)
[2017-03-15] MEDS ORDERED: DOBUTamine PREMIX DRIP 250 ML IV SCH (15:57)
[2017-03-15] MEDS ORDERED: MEPERIDINE HCL 25 MG/ML VIAL IV PUSH PRN (16:00)
[2017-03-15] MEDS ORDERED: DOPamine INJ PREMIX 500 ML IV PRN (16:00)
[2017-03-15] MEDS ORDERED: SODIUM BICARBONATE 8.4% SOLN 50 MEQ/50 ML VIAL IV PUSH PRN ×2 (16:00)
[2017-03-15] MEDS ORDERED: RESP: ALBUTEROL 2.5 MG/IPRATROPIUM 0.5 MG NEB (PRN) NEB (16:00)
[2017-03-15] MEDS ORDERED: Post-op Orders (for Pharmacy) MISC OTHER ONE (16:00)
[2017-03-15] MEDS ORDERED: RESP: RACEPINEPHRINE 2.25% 0.5 ML NEB NEB PRN (16:00)
[2017-03-15] MEDS ORDERED: PHENYLEPHRINE INJ 40 MG in DEXTROSE 5% IN WATE 500 ML INJ 496 ML IV PRN ×2 (16:00)
[2017-03-15] MEDS ORDERED: MAGNESIUM SULFATE INJ 2 GM in SODIUM CHLORIDE 0.9% INJ 100 ML IV PRN ×4 (16:00)
[2017-03-15] MEDS ORDERED: CALCIUM CHLORIDE INJ 1 GM in SODIUM CHLORIDE 0.9% INJ 100 ML IV PRN (16:00)
[2017-03-15] MEDS ORDERED: NITROGLYCERIN-D5W 50 MG/250 ML 250 ML IV PRN (16:00)
[2017-03-15] MEDS ORDERED: CALCIUM CHLORIDE 10% 1 GRAM/10 ML VIAL IV PUSH PRN (16:00)
[2017-03-15] MEDS ORDERED: hydrALAZINE HCL 20 MG/ML VIAL IV PUSH PRN (16:00)
[2017-03-15] MEDS ORDERED: INSULIN REGULAR (IV INFUSION) 100 UNITS in SODIUM CHLORIDE 0.9% INJ 99 ML IV PRN (16:00)
[2017-03-15] MEDS ORDERED: DEXMEDETOMIDINE INJ 200 MCG in SODIUM CHLORIDE 0.9% INJ 50 ML IV PRN (16:00)
[2017-03-15] MEDS ORDERED: DEXTROSE 50% IN WATER 50 ML VIAL(D50) IV PUSH PRN (16:00)
[2017-03-15] MEDS ORDERED: ONDANSETRON HCL 4 MG/2 ML VIAL IV PUSH PRN (16:00)
[2017-03-15] MEDS ORDERED: SODIUM CHLORIDE 0.9% FLUSH 10 ML FLUSH IV FLUSH PRN (16:00)
[2017-03-15] MEDS ORDERED: ACETAMINOPHEN 650 MG SUPP RECTAL PRN (16:00)
[2017-03-15] MEDS ORDERED: POTASSIUM CHLORIDE 20 MEQ CONTROLLED RELEASE TAB PO PRN ×2 (16:00)
[2017-03-15] MEDS ORDERED: ALBUMIN 5% INJ 250 ML IV PRN (16:00)
[2017-03-15] MEDS ORDERED: ACETAMINOPHEN 325 MG TAB PO PRN (16:00)
[2017-03-15] MEDS ORDERED: POTASSIUM CHLOR 20 MEQ PREMIX 100 ML IV PRN ×3 (16:00)
[2017-03-15] MEDS ORDERED: CLEVIDIPINE INJ 50 ML IV PRN (16:00)
--- NOTE | 2017-03-15 17:05 | PD.OP ---
cc: Chaz Callejas MD; Gallito Armijo MD Operative Report Date of Surgery: Mar 15, 2017 Preoperative Diagnosis: Postoperative Diagnosis: Procedure: 1. Urgent Off-pump Coronary Artery Bypass Grafting x 2 with Left Internal Mammary Artery (TORRES) to the Left Anterior Descending (LAD), reverse saphenous vein graft to the Diagonal 1 2. Left Leg Endoscopic Vein [place] 3. Left Atrial Appendage Excision 4. Intraoperative Vein Mapping 5. Attempted Synchronized Cardioversion Surgeon: Chaz Callejas Shirt Ironer(s): Faith Johnson Operation and Findings: PREPROCEDURE DIAGNOSES 1. Severe LAD bifurcation Coronary Artery Disease. 2. Severe Left Ventricular Dysfunction (EF 25%) 3. Chronic Atrial Fibrillation 4. Renal Insufficiency 5. Intramyocardial Coronary Arteries POSTPROCEDURE DIAGNOSES Same SURGICAL PROCEDURE 1. Urgent Off-pump Coronary Artery Bypass Grafting x 2 with Left Internal Mammary Artery (TORRES) to the Left Anterior Descending (LAD), reverse saphenous vein graft to the Diagonal 1 2. Left Leg Endoscopic Vein [place] 3. Left Atrial Appendage Excision 4. Intraoperative Vein Mapping 5. Attempted Synchronized Cardioversion SURGEON Chaz Callejas MD SENIOR BUSINESS PROCESS ANALYST Scar Johnson DAMAGE ASSESSOR ANESTHESIA General endotracheal COMMUNICATIONS SYSTEMS ENGINEER RENY Montague MD PREPARATION ChloraPrep. COUNTS Needle, sponge, and instrument counts were correct. DRAINS Two 32-[place] mediastinal tubes. COMPLICATIONS None. INDICATIONS FOR PROCEDURE The patient is a 76-year-old presenting with chest pain and critical LAD coronary artery disease with associated cardiomyopathy. He is being brought to the operating room for surgical revascularization therapy. PROCEDURE Patient was brought to the operating room and placed supine on the OR table. Following the induction of adequate general endotracheal anesthesia and placement of appropriate monitoring devices, intraoperative vein mapping was performed which revealed suitable-caliber conduit in both legs. The patient was then prepped and draped in standard sterile fashion. Next, 2500 units of intravenous heparin was given. The left greater saphenous vein was harvested endoscopically from the thigh. This appeared to be a useable-caliber conduit. Simultaneously, a median sternotomy was performed and the left internal mammary artery dissected free off the posterior sternal table. The patient was systemically heparinized and anticoagulation monitored by serial ACT measurements. The internal mammary artery had good pulsatile flow in it and was a decent-caliber conduit. The pericardium was then divided in the midline, the cradle created and targets analyzed. At this point, all anastomoses were performed in a beating-heart fashion using the Cortexicaquet stabilizing system. The left internal mammary artery was anastomosed to the distal LAD (2 mm) in an end- to-side fashion using 7-0 Prolene. The next segment was anastomosed to the D1 ( 1.75 mm) in an end-to-side fashion using a running 7-0 Prolene. The proximal anastomosis was then constructed to the ascending aorta in a running manner using 6-0 Prolene. All anastomotic sites were inspected and appeared to be hemostatic and patent. The left atrial appedage was excised using a surgical stapler and sent for histological analysis. Attempted synchronized cardioversion was unsuccessful in establishing a sinus rhythm. Protamine solution was given. Strict hemostasis was assured. The closure was undertaken. 2 chest tubes were placed. The pericardium was reapproximated in the midline. The sternum was approximated using sternal wires. The muscular and fascial layer were then closed in 3 layers. The endoscopic vein harvest site was closed in 2 layers. The patient tolerated the procedure well and was transferred to CVICU in stable condition. Chaz Callejas MD Mar 15, 2017 17:05
--- NOTE | 2017-03-15 17:23 | RADRPT ---
EXAM DATE/TIME: 03/15/2017 16:40 [facility] COMPARISON: CHEST PA & LAT, March 14, 2017, 17:05. INDICATIONS : Post open heart surgery. MEDICAL HISTORY : Hypertension. Congestive heart failure. A FIB. Hyperlipidemia. SURGICAL HISTORY : Heart catheterization. ENCOUNTER: Initial ACUITY: 1 day PAIN SCORE: Non-responsive. LOCATION: Bilateral chest FINDINGS: Post surgical features of interval median sternotomy and cardiac surgery. There is an ETT at the leve l of the clavicles. There is a right IJ central line in the central SVC. There is a mediastinal drain and left apical chest tube in place. There is an NGT with tip in the stomach. No significant pneumot horax. Mild bibasilar airspace disease, likely atelectasis. Cardiomediastinal contours are within nor mal limits. Remainder of the exam is unchanged. CONCLUSION: 1. Expected postoperative features of cardiac surgery with tubes and lines, as above. 2. No significant thorax. Brayan Burton MD on March 15, 2017 at 17:20 Board Certified Radiologist. This report was verified electronically.
[2017-03-15] MEDS: ACETAMINOPHEN 1000 MG/100 ML 100 ML IV SCH ×2 (17:28→23:12)
[2017-03-15] MEDS: AMIODARONE 200 MG TAB PO SCH (20:14)
[2017-03-15] MEDS: ceFAZolin 2 GM PREMIX 50 ML IV SCH (20:15)
[2017-03-15] MEDS: METOPROLOL TARTRATE 5 MG/5 ML VIAL IV PUSH PRN (20:40)
[2017-03-15] MEDS: MORPHINE SULFATE 4 MG/ML INJ IV PUSH PRN (20:41)
[2017-03-15] MEDS: RESP: ALBUTEROL 2.5 MG/IPRATROPIUM 0.5 MG NEB (SCH) NEB (21:12)
[2017-03-15] MEDS ORDERED: AMIODARONE HCL 150 MG/3 ML VIAL ONE (22:29)
[2017-03-15] MEDS ORDERED: AMIODARONE 150 MG/D5W 97 ML BOLUS 10 MINUTES IV ONE ×2 (22:45)
[2017-03-15] MEDS: AMIODARONE INJ 450 MG in D5W (EXCEL BAG) INJ 241 ML IV PRN (22:54)
[2017-03-16] VITALS (16 sets, daily range): BP systolic 99–158; BP diastolic 64–79; PULSE 20–123; RESP 16–22; TEMP 97.6–98.6; O2SAT 92–98
[2017-03-16] MEDS: MORPHINE SULFATE 4 MG/ML INJ IV PUSH PRN (02:19)
[2017-03-16] MEDS: ACETAMINOPHEN 1000 MG/100 ML 100 ML IV SCH ×2 (04:00→08:36)
[2017-03-16] MEDS: NS 1000 ML @100 MLS/HR IV SCH ×2 (04:00→09:00)
[2017-03-16] MEDS: RESP: ALBUTEROL 2.5 MG/IPRATROPIUM 0.5 MG NEB (SCH) NEB ×2 (04:15→09:10)
[2017-03-16 04:42] LABS: HEMATOCRIT 38.1 % (39.0-51.0); MEAN CELL VOLUME 90.6 FL (80.0-100.0); MEAN CORPUSCULAR HEMOGLOBIN 30.9 PG (27.0-34.0); MEAN CORPUSCULAR HGB CONC 34.1 % (32.0-36.0); PLATELET COUNT 132 TH/MM3 (150-450); RED BLOOD COUNT 4.21 MIL/MM3 (4.50-5.90); REVIEW FLAG FINAL; WHITE BLOOD COUNT 12.2 TH/MM3 (4.0-11.0)
[2017-03-16 05:05] LABS: BICARBONATE 21.2 MEQ/L (21.0-32.0); MAGNESIUM 2.3 MG/DL (1.5-2.5); POTASSIUM 4.4 MEQ/L (3.5-5.1)
--- NOTE | 2017-03-16 06:13 | RADRPT ---
EXAM DATE/TIME: 03/16/2017 04:33 [facility] COMPARISON: CHEST SINGLE AP, March 15, 2017, 16:40. INDICATIONS : Shortness of breath, possible pulmonary disease. MEDICAL HISTORY : Hypertension. Congestive heart failure. A-Fib SURGICAL HISTORY : CABG. ENCOUNTER: Subsequent ACUITY: 2 days PAIN SCORE: Non-responsive. LOCATION: Bilateral chest FINDINGS: The cardiac silhouette is normal in transverse diameter. Median sternotomy wires are present. Support lines and tubes are in satisfactory position. The lungs are free of acute parenchymal opacity. No ef fusions are identified. CONCLUSION: 1. Cardiomegaly. No acute pulmonary disease. Alejandro Scanlon MD on March 16, 2017 at 6:10 Board Certified Radiologist. This report was verified electronically.
[2017-03-16] MEDS: PANTOPRAZOLE SOD 40 MG DELAYED RELEASE TAB PO SCH (06:29)
[2017-03-16] MEDS: ceFAZolin 2 GM PREMIX 50 ML IV SCH ×3 (06:30→21:30)
[2017-03-16] MEDS: AMIODARONE INJ 450 MG in D5W (EXCEL BAG) INJ 241 ML IV PRN ×2 (06:53→21:33)
[2017-03-16] MEDS: CLOPIDOGREL 75 MG TAB PO SCH (08:35)
[2017-03-16] MEDS: ASPIRIN 81 MG CHEW TAB PO SCH (08:35)
[2017-03-16] MEDS: AMIODARONE 200 MG TAB PO SCH (08:36)
[2017-03-16] MEDS: SODIUM CHLORIDE 0.9% FLUSH 10 ML FLUSH IV FLUSH SCH ×3 (09:00→21:29)
[2017-03-16] MEDS ORDERED: MULTIVITAMIN INJ 10 ML, THIAMINE INJ 500 MG, FOLIC ACID INJ 1 MG in SODIUM CHLORID 0.9%... IV SCH (09:00)
[2017-03-16] MEDS ORDERED: DEXTROSE 50% IN WATER 50 ML VIAL(D50) IV PUSH PRN (09:30)
[2017-03-16] MEDS ORDERED: SOD PHOSPHATE/SOD BIPHOSPHATE (ADULT) ENEMA 133ML RECTAL PRN (09:30)
[2017-03-16] MEDS ORDERED: GLUCAGON 1 MG/ML VIAL OTHER PRN (09:30)
[2017-03-16] MEDS ORDERED: BISACODYL 10 MG SUPP RECTAL PRN (09:30)
[2017-03-16] MEDS: METOPROLOL TARTRATE 5 MG/5 ML VIAL IV PUSH PRN (10:13)
[2017-03-16] MEDS: METOPROLOL TARTRATE 25 MG TAB PO SCH ×2 (10:38→21:29)
[2017-03-16] MEDS: INSULIN ASPART SUPPLEMENTAL SCALE SQ SCH ×4 (10:38→21:29)
[2017-03-16] MEDS: DOCUSATE SODIUM 100 MG CAP PO SCH ×2 (10:39→21:29)
[2017-03-16] MEDS ORDERED: DIGOXIN 0.5 MG/2 ML VIAL IV PUSH ONE (11:00)
--- NOTE | 2017-03-16 11:03 | PD.CARD.PN ---
Subjective Subjective Remarks doing well. sitting up in chair. afib RVR. no complaints Objective Medications Current Medications Medications (Trade) Dose Ordered Sig/Nivia Route Start Time Stop Time Status Last Admin Sodium Chloride 1,000 ml @ 200 mls/hr Q5H IV 03/14/17 07:00 Future Hold Heparin Sodium/ Dextrose 250 ml @ 10 mls/hr TITRATE PRN IV 03/14/17 11:30 Future Hold 03/14/17 20:06 Papaverine HCl 60 mg/Nitroglycerin 100 mcg/Diltiazem HCl 100 mg/Sodium Chloride 100 ml @ 0 mls/hr AGENCY DEVELOPMENT MANAGER IRRIGATION 03/14/17 16:30 03/21/17 16:29 Future Hold 03/15/17 14:41 Cefazolin Sodium 500 mg/Sodium Chloride 505 ml @ 0 mls/hr AGENCY DEVELOPMENT MANAGER IRRIGATION 03/14/17 16:30 03/21/17 16:29 Future Hold 03/15/17 14:40 Cefazolin Sodium/ Dextrose 50 ml @ 150 mls/hr AGENCY DEVELOPMENT MANAGER IV 03/14/17 16:30 03/21/17 16:29 Future Hold Insulin Human Regular 100 units/ Sodium Chloride 100 ml @ 3 mls/hr TITRATE PRN IV 03/14/17 18:00 03/21/17 17:59 Future Hold (D50w (Vial) Inj) 50 ml UNSCH PRN IV PUSH 03/14/17 17:00 (Glucagon Inj) 1 mg UNSCH PRN OTHER 03/14/17 17:00 (NS Flush) 2 ml BID IV FLUSH 03/15/17 21:00 03/16/17 09:00 (NS Flush) 2 ml UNSCH PRN IV FLUSH 03/15/17 16:00 Dexmedetomidine HCl 200 mcg/ Sodium Chloride 52 ml @ 4.37 mls/hr TITRATE PRN IV 03/15/17 16:00 Future Hold 03/15/17 16:25 Nitroglycerin/ Dextrose 250 ml @ 1.5 mls/hr TITRATE PRN IV 03/15/17 16:00 Future Hold Dobutamine HCl/ Dextrose 250 ml @ 12.615 mls/ hr [id number] IV 03/15/17 15:57 Future Hold Dopamine HCl/ Dextrose 500 ml @ 9.461 mls/ hr TITRATE PRN IV 03/15/17 16:00 Future Hold Phenylephrine HCl 40 mg/Dextrose 500 ml @ 30 mls/hr TITRATE PRN IV 03/15/17 16:00 Future Hold 03/15/17 16:25 Clevidipine 50 ml @ 2 mls/hr TITRATE PRN IV 03/15/17 16:00 Future Hold Albumin Human 250 ml @ 250 mls/hr UNSCH PRN IV 03/15/17 16:00 Future Hold Lactated Ringer's 500 ml @ 500 mls/hr Q1H PRN IV 03/15/17 15:57 Future Hold (Aspirin Chew) 81 mg DAILY PO 03/16/17 09:00 03/16/17 08:35 (Plavix) 75 mg DAILY PO 03/16/17 09:00 03/16/17 08:35 (Protonix) 40 mg DAILY@06 PO 03/16/17 06:00 03/16/17 06:29 (Cordarone) 400 mg Q12HR PO 03/15/17 21:00 Future Hold 03/16/17 08:36 Multivitamins 10 ml/Thiamine HCl 500 mg/Folic Acid 1 mg/Sodium Chloride 515.2 ml @ 21 mls/hr DAILY IV 03/16/17 09:00 Future Hold (Tylenol) 650 mg Q4H PRN PO 03/15/17 16:00 (Tylenol Supp) 650 mg Q4H PRN RECTAL 03/15/17 16:00 Future Hold (Percocet 5-325 Mg) 1 tab Q3H PRN PO 03/15/17 16:00 (Zofran Inj) 4 mg Q6H PRN IV PUSH 03/15/17 16:00 (Apresoline Inj) 10 mg Q4H PRN IV PUSH 03/15/17 16:00 (Lopressor Inj) 2.5 mg Q1H PRN IV PUSH 03/15/17 16:00 03/16/17 10:13 Potassium Chloride 100 ml @ 50 mls/hr UNSCH PRN IV 03/15/17 16:00 Future Hold Potassium Chloride 100 ml @ 50 mls/hr UNSCH PRN IV 03/15/17 16:00 Future Hold Potassium Chloride 100 ml @ 50 mls/hr UNSCH PRN IV 03/15/17 16:00 Future Hold (KCl) 20 meq UNSCH PRN PO 03/15/17 16:00 Magnesium Sulfate 2 gm/Sodium Chloride 104 ml @ 100 mls/hr UNSCH PRN IV 03/15/17 16:00 Magnesium Sulfate 2 gm/Sodium Chloride 104 ml @ 50 mls/hr UNSCH PRN IV 03/15/17 16:00 Insulin Human Regular 100 units/ Sodium Chloride 100 ml @ 3 mls/hr TITRATE PRN IV 03/15/17 16:00 Future Hold 03/15/17 18:26 (D50w (Vial) Inj) 50 ml UNSCH PRN IV PUSH 03/15/17 16:00 Cefazolin Sodium/ Dextrose 50 ml @ 100 mls/hr Q8H IV 03/15/17 21:00 03/17/17 05:29 03/16/17 06:30 Amiodarone HCl 450 mg/Dextrose 250 ml @ 33.33 mls/ hr TITRATE PRN IV 03/15/17 22:45 03/16/17 06:53 (Atrovent Neb) 0.5 mg Q6HR NEB NEB 03/16/17 10:00 (Lopressor) 25 mg Q12HR PO 03/16/17 09:30 03/16/17 10:38 (Duoneb Neb) 1 ampule Q6HR WHILE AWAKE NEB NEB 03/16/17 14:00 03/18/17 13:59 (Colace) 100 mg BID PO 03/16/17 09:30 03/16/17 10:39 (Theragran M Tab) 1 tab DAILY PO 03/17/17 09:00 (Milk Of Magnesia Liq) 30 ml DAILY PO 03/17/17 09:00 (Dulcolax Supp) 10 mg UNSCH PRN RECTAL 03/16/17 09:30 (Miralax) 17 gm DAILY PO 03/17/17 09:00 (Senokot) 8.6 mg HS PO 03/16/17 21:00 (Fleets Enema (Adult)) 118 ml UNSCH PRN RECTAL 03/16/17 09:30 (NovoLOG SUPPLEMENTAL SCALE) 1 02,06,10,14,18,22 SQ 03/16/17 10:00 03/16/17 10:38 (D50w (Vial) Inj) 50 ml UNSCH PRN IV PUSH 03/16/17 09:30 (Glucagon Inj) 1 mg UNSCH PRN OTHER 03/16/17 09:30 Vital Signs / I&O Vital Signs Date Time Temp Pulse Resp B/P (MAP) Pulse Ox O2 Delivery O2 Flow Rate FiO2 03/16/17 09:10 95 Nasal Cannula 2.00 03/16/17 07:40 97 2.00 03/16/17 07:39 122 03/16/17 07:31 98.6 20 18 121/78 (92) 97 Arterial Line 03/16/17 06:53 127 155/59 03/16/17 04:16 98 Nasal Cannula 2.00 03/16/17 03:00 97 2.00 03/16/17 03:00 98.6 20 18 99/66 (77) 97 108/64 (79) 03/16/17 03:00 122 03/16/17 02:30 22 03/15/17 23:50 18 03/15/17 23:00 150 03/15/17 23:00 99.7 120 18 109/75 (86) 97 130/56 (80) 03/15/17 23:00 97 3.00 03/15/17 22:54 144 140/58 03/15/17 22:45 177 150/47 03/15/17 22:29 177 140/58 03/15/17 22:26 177 18 133/67 (89) 98 126/45 (72) 03/15/17 19:25 99 Nasal Cannula 3 03/15/17 19:25 99 Nasal Cannula 3.00 03/15/17 19:00 98 Nasal Cannula 3.00 03/15/17 19:00 98.6 115 22 130/96 (107) 98 128/53 (78) 03/15/17 19:00 115 03/15/17 17:46 97 40 03/15/17 17:45 50 03/15/17 17:00 50 03/15/17 17:00 96 Mechanical Ventilator 50 03/15/17 16:25 101 03/15/17 16:25 97.4 101 10 118/70 (86) 99 112/58 (76) 03/15/17 16:25 98 50 03/15/17 16:25 101 112/58 03/15/17 11:00 98.0 134 18 122/83 (96) 95 03/15/17 11:00 97 Room Air 03/15/17 11:00 132 I/O 03/15/17 03/15/17 03/15/17 03/16/17 03/16/17 03/16/17 06:59 14:59 22:59 06:59 14:59 22:59 Intake Total 336 ml 3802 ml 587 ml 100 ml Output Total 630 ml 610 ml Balance 336 ml 3172 ml -23 ml 100 ml Intake Oral 240 ml 420 ml IV Total 96 ml 452 ml 167 ml 100 ml Autotransfusion 450 ml Other 2900 ml Output Urine Total 340 ml 400 ml Chest Tube Drainage Total 140 ml 210 ml Estimated Blood Loss 150 ml # Voids 3 # Bowel Movements 3 0 0 Physical Exam NECK: Supple, trachea midline. No JVD or lymphadenopathy. CARDIOVASCULAR:IR IR tachycardia RESPIRATORY: Breath sounds equal bilaterally. No accessory muscle use. GASTROINTESTINAL: Abdomen soft, non-tender, nondistended. MUSCULOSKELETAL: No cyanosis, or edema. BACK: Nontender without obvious deformity. No CVA tenderness. Laboratory Laboratory Tests Test 03/15/17 21:46 03/16/17 04:14 Magnesium Level 2.2 MG/DL 2.3 MG/DL White Blood Count 12.2 TH/MM3 Red Blood Count 4.21 MIL/MM3 Hemoglobin 13.0 GM/DL Hematocrit 38.1 % Mean Corpuscular Volume 90.6 FL Mean Corpuscular Hemoglobin 30.9 PG Mean Corpuscular Hemoglobin Concent 34.1 % Red Cell Distribution Width 14.0 % Platelet Count 132 TH/MM3 Mean Platelet Volume 9.8 FL Blood Urea Nitrogen 20 MG/DL Creatinine 1.62 MG/DL Random Glucose 114 MG/DL Calcium Level 8.6 MG/DL Sodium Level 140 MEQ/L Potassium Level 4.4 MEQ/L Chloride Level 109 MEQ/L Carbon Dioxide Level 21.2 MEQ/L Anion Gap 10 MEQ/L Estimat Glomerular Filtration Rate 42 ML/MIN Imaging Last 24 hours Impressions Chest X-Ray 03/16/17 0500 Signed Impressions: Service Date/Time: March 04:33 - CONCLUSION: 1. Cardiomegaly. No acute pulmonary disease. Alejandro Scanlon MD Assessment and Plan Problem List: (1) Coronary artery disease ICD Codes: I25.10 - Atherosclerotic heart disease of [place] coronary artery without angina pectoris (2) Hyperlipemia ICD Codes: E78.5 - Hyperlipidemia, unspecified (3) Hypertension ICD Codes: I10 - Essential (primary) hypertension (4) Chronic a-fib ICD Codes: I48.2 - Chronic atrial fibrillation Assessment and Plan unstable angina- severe LAD/Diagonal dz status post CABG. afib RVR - chronic afib, now RVR. add dig. Cr 1.6. follow dig level. on BB. on amio gtt. add cardizem PO with hold parameters. no plan for ablation, hold off on EP consult. ambulate routine postop care Gallito Armijo MD Mar 16, 2017 11:03
[2017-03-16] MEDS: DILTIAZEM HCL 60 MG TAB PO SCH ×3 (11:22→23:12)
--- NOTE | 2017-03-16 13:59 | EKG ---
Date Performed: 03/16/2017 Time Performed: 05:16:04 PTAGE: 76 years EKG: Atrial fibrillation with rapid ventricular response Possible septal infarct - age undetermi jah LVH with secondary repolarization abnormality Inferior/lateral ST-T changes may be due to hypertr ophy and/or ischemia Abnormal ECG No significant change from prior electrocardiogram. DOCTOR: Jorge Alberto Jennings Interpretating Date/Time 03/16/2017 13:57:49
[2017-03-16] MEDS ORDERED: RESP: ALBUTEROL 2.5 MG/IPRATROPIUM 0.5 MG NEB (SCH) NEB (14:00)
--- NOTE | 2017-03-16 14:00 | EKG ---
Date Performed: 03/15/2017 Time Performed: 22:19:04 PTAGE: 76 years EKG: Atrial fibrillation with uncontrolled ventricular response with non-sustained ventricular t achycardia. Cannot rule out septal infarct - age undetermined LVH with secondary repolarization abnor mality Nonspecific ST and T wave abnormalities Abnormal ECG No prior electrocardiogram available for comparison. DOCTOR: Jorge Alberto Jennings Interpretating Date/Time 03/16/2017 13:59:43
--- NOTE | 2017-03-16 14:12 | PD.CAR.PN ---
CVT Progress Note Subjective/Hospital Course: A 76-year-old male, with recent complaint of some chest tightness, fatigue off and on since November. He thought that it was some heat exhaustion but it has been going on since. He has seen Dr. Armijo in the past for chronic atrial fibrillation and has been on Coumadin. Because of the history of shortness of breath he underwent cardiac catheterization which showed an ejection fraction of 25%, proximal left anterior descending 90%. The diagonal 90%. The circ 30% . The obtuse marginal had 75% stenosis. We were consulted to evaluate for coronary artery bypass grafting. He underwent a 2-D echo prior to his cath this morning which showed an ejection fraction of 25-30%, diffuse global hypokinesis, left atrial size moderately dilated. The right atrial size moderately dilated, moderate mitral regurgitation, mild tricuspid regurgitation. PAST MEDICAL HISTORY: chronic atrial fibrillation on Coumadin, CAD , Chronic kidney disease stage 2-3 , Cardiomyopathy, Hypertension, Hyperlipidemia surgery 03/15 . Urgent Off-pump Coronary Artery Bypass Grafting x 2 with Left Internal Mammary Artery (TORRES) to the Left Anterior Descending (LAD), reverse saphenous vein graft to the Diagonal 1, Left Leg Endoscopic Vein [place], Left Atrial Appendage Excision, Intraoperative Vein Mapping, Attempted Synchronized Cardioversion extubated after surgery crystalloid 2900cc/ 450cc cell saver , 150cc EBL 03/16 remains in Afib , RVR last pm, started on IV amiodarone , pt was still in afib RVR this am BB added, also cardizem and digoxin / seen by Dr Armijo will need to resume coumadin once chest tubes out / also dc amiodarone once IV amiodarone infused over 24hrs up in chair, on nasal cannula pain controlled HR improved after above meds/ eval for transfer to stepdown Objective: GENERAL: SKIN: Warm and dry. prevena dressing to chest , incision intact left leg HEAD: Normocephalic. EYES: No scleral icterus. No injection or drainage. NECK: Supple, trachea midline. No JVD or lymphadenopathy. CARDIOVASCULAR: irregular rate and rhythm Regular rate and rhythm without murmurs, gallops, or rubs. RESPIRATORY: Breath sounds equal bilaterally. No accessory muscle use. diminished in bases , chest tube to wall suction, no air leak / drained 210cc/ 12 hrs GASTROINTESTINAL: Abdomen soft, non-tender, nondistended. MUSCULOSKELETAL: No cyanosis, or edema. BACK: Nontender without obvious deformity. No CVA tenderness. Vital Signs Date Time Temp Pulse Resp B/P (MAP) Pulse Ox O2 Delivery O2 Flow Rate FiO2 03/16/17 09:10 95 Nasal Cannula 2.00 03/16/17 07:40 97 2.00 03/16/17 07:39 122 03/16/17 07:31 98.6 20 18 121/78 (92) 97 Arterial Line 03/16/17 06:53 127 155/59 03/16/17 04:16 98 Nasal Cannula 2.00 03/16/17 03:00 97 2.00 03/16/17 03:00 98.6 20 18 99/66 (77) 97 108/64 (79) 03/16/17 03:00 122 03/16/17 02:30 22 03/15/17 23:50 18 03/15/17 23:00 150 03/15/17 23:00 99.7 120 18 109/75 (86) 97 130/56 (80) 03/15/17 23:00 97 3.00 03/15/17 22:54 144 140/58 03/15/17 22:45 177 150/47 03/15/17 22:29 177 140/58 03/15/17 22:26 177 18 133/67 (89) 98 126/45 (72) 03/15/17 19:25 99 Nasal Cannula 3 03/15/17 19:25 99 Nasal Cannula 3.00 03/15/17 19:00 98 Nasal Cannula 3.00 03/15/17 19:00 98.6 115 22 130/96 (107) 98 128/53 (78) 03/15/17 19:00 115 03/15/17 17:46 97 40 03/15/17 17:45 50 03/15/17 17:00 50 03/15/17 17:00 96 Mechanical Ventilator 50 03/15/17 16:25 101 03/15/17 16:25 97.4 101 10 118/70 (86) 99 112/58 (76) 03/15/17 16:25 98 50 03/15/17 16:25 101 112/58 Labs: Laboratory Tests Test 03/16/17 04:14 White Blood Count 12.2 TH/MM3 (4.0-11.0) Red Blood Count 4.21 MIL/MM3 (4.50-5.90) Hemoglobin 13.0 GM/DL (13.0-17.0) Hematocrit 38.1 % (39.0-51.0) Mean Corpuscular Volume 90.6 FL (80.0-100.0) Mean Corpuscular Hemoglobin 30.9 PG (27.0-34.0) Mean Corpuscular Hemoglobin Concent 34.1 % (32.0-36.0) Red Cell Distribution Width 14.0 % (11.6-17.2) Platelet Count 132 TH/MM3 (150-450) Mean Platelet Volume 9.8 FL (7.0-11.0) Blood Urea Nitrogen 20 MG/DL (7-18) Creatinine 1.62 MG/DL (0.60-1.30) Random Glucose 114 MG/DL (74-106) Calcium Level 8.6 MG/DL (8.5-10.1) Magnesium Level 2.3 MG/DL (1.5-2.5) Sodium Level 140 MEQ/L (136-145) Potassium Level 4.4 MEQ/L (3.5-5.1) Chloride Level 109 MEQ/L (98-107) Carbon Dioxide Level 21.2 MEQ/L (21.0-32.0) Anion Gap 10 MEQ/L (5-15) Estimat Glomerular Filtration Rate 42 ML/MIN (>89) Result Diagram: 03/16/1741303/16/17413 Telemetry: Afib (1) Coronary artery disease (2) S/P CABG x 2 Plan: ASA, , amiodarone , BB resume niacin on discharge meds and fish oil intolerant to statins / pulm toileting dc albuterol, Atrovent only 2/2 afib OOB, ambulate (3) Hyperlipemia Plan: pt on fish oil and niacin at home resume at discharge (4) Hypertension Plan: controlled (5) Chronic a-fib Plan: resume coumadin when chest tube out on digoxin, BB, amiodarone and cardizem dc amiodarone gtt in Kandice Snyder Mar 16, 2017 14:11
[2017-03-16] MEDS: RESP: IPRATROPIUM 0.5 MG/2.5 ML NEB NEB SCH ×2 (16:40→21:11)
[2017-03-16] MEDS: oxyCODONE/ACETAMINOPHEN 5 MG/325 MG TAB PO PRN (17:50)
[2017-03-16] MEDS: SENNOSIDES 8.6 MG TAB PO SCH (21:29)
[2017-03-17] VITALS (29 sets, daily range): BP systolic 94–149; BP diastolic 56–67; PULSE 76–115; RESP 16–20; TEMP 97.8–98.4; O2SAT 94–97
[2017-03-17] MEDS: INSULIN ASPART SUPPLEMENTAL SCALE SQ SCH ×6 (02:44→21:04)
[2017-03-17] MEDS: oxyCODONE/ACETAMINOPHEN 5 MG/325 MG TAB PO PRN (03:47)
[2017-03-17] MEDS: RESP: IPRATROPIUM 0.5 MG/2.5 ML NEB NEB SCH ×2 (04:22→20:25)
[2017-03-17] MEDS: ceFAZolin 2 GM PREMIX 50 ML IV SCH (05:00)
[2017-03-17 05:37] LABS: BASOPHIL % 0.1 % (0.0-2.0); HEMATOCRIT 34.5 % (39.0-51.0); HEMO FLAGS DIFF FINAL; LYMPH % 8.8 % (9.0-44.0); LYMPHOCYTE # 1.2 TH/MM3 (1.0-4.8); MEAN CELL VOLUME 91.2 FL (80.0-100.0); MEAN CORPUSCULAR HEMOGLOBIN 31.1 PG (27.0-34.0); MEAN CORPUSCULAR HGB CONC 34.2 % (32.0-36.0); MONO % 12.3 % (0.0-8.0); NEUT % 78.8 % (16.0-70.0); PLATELET COUNT 109 TH/MM3 (150-450); RED BLOOD COUNT 3.79 MIL/MM3 (4.50-5.90); WHITE BLOOD COUNT 13.9 TH/MM3 (4.0-11.0)
[2017-03-17 05:44] LABS: INTERNATIONAL NORMALIZED RATIO 1.2 RATIO; PROTHROMBIN TIME - PATIENT 13.1 SEC (9.8-11.6)
[2017-03-17] MEDS: PANTOPRAZOLE SOD 40 MG DELAYED RELEASE TAB PO SCH (06:49)
[2017-03-17] MEDS: DILTIAZEM HCL 60 MG TAB PO SCH ×4 (06:49→23:04)
[2017-03-17 07:08] LABS: BICARBONATE 24.4 MEQ/L (21.0-32.0); DIGOXIN 1.1 NG/ML (0.8-2.0); MAGNESIUM 1.9 MG/DL (1.5-2.5); POTASSIUM 4.6 MEQ/L (3.5-5.1)
[2017-03-17] MEDS: CLOPIDOGREL 75 MG TAB PO SCH (09:00)
[2017-03-17] MEDS: SODIUM CHLORIDE 0.9% FLUSH 10 ML FLUSH IV FLUSH SCH ×2 (09:00→22:05)
[2017-03-17] MEDS: POLYETHYLENE GLYCOL 17 GM PKG PO SCH (10:04)
[2017-03-17] MEDS: MULTIVITAMINS/MINERALS THERAPEUTIC TAB PO SCH (10:05)
[2017-03-17] MEDS: MAGNESIUM HYDROXIDE SUSP 30 ML CUP PO SCH (10:05)
[2017-03-17] MEDS: DOCUSATE SODIUM 100 MG CAP PO SCH ×2 (10:05→22:04)
[2017-03-17] MEDS: METOPROLOL TARTRATE 25 MG TAB PO SCH (10:05)
[2017-03-17] MEDS: DIGOXIN 0.125 MG TAB PO SCH (10:05)
[2017-03-17] MEDS: ASPIRIN 81 MG CHEW TAB PO SCH (10:06)
[2017-03-17] MEDS ORDERED: RESP: IPRATROPIUM 0.5 MG/2.5 ML NEB NEB PRN (11:00)
[2017-03-17] MEDS ORDERED: MAGNESIUM SULFATE 1 GM PREMIX 100 ML IV ONE (11:00)
[2017-03-17] MEDS: ENOXAPARIN SODIUM 40 MG/0.4 ML SYRINGE SQ SCH ×2 (11:10→22:04)
--- NOTE | 2017-03-17 17:40 | PD.CAR.PN ---
CVT Progress Note Subjective/Hospital Course: A 76-year-old male, with recent complaint of some chest tightness, fatigue off and on since November. He thought that it was some heat exhaustion but it has been going on since. He has seen Dr. Armijo in the past for chronic atrial fibrillation and has been on Coumadin. Because of the history of shortness of breath he underwent cardiac catheterization which showed an ejection fraction of 25%, proximal left anterior descending 90%. The diagonal 90%. The circ 30% . The obtuse marginal had 75% stenosis. We were consulted to evaluate for coronary artery bypass grafting. He underwent a 2-D echo prior to his cath this morning which showed an ejection fraction of 25-30%, diffuse global hypokinesis, left atrial size moderately dilated. The right atrial size moderately dilated, moderate mitral regurgitation, mild tricuspid regurgitation. PAST MEDICAL HISTORY: chronic atrial fibrillation on Coumadin, CAD , Chronic kidney disease stage 2-3 , Cardiomyopathy, Hypertension, Hyperlipidemia surgery 03/15 . Urgent Off-pump Coronary Artery Bypass Grafting x 2 with Left Internal Mammary Artery (TORRES) to the Left Anterior Descending (LAD), reverse saphenous vein graft to the Diagonal 1, Left Leg Endoscopic Vein [place], Left Atrial Appendage Excision, Intraoperative Vein Mapping, Attempted Synchronized Cardioversion extubated after surgery crystalloid 2900cc/ 450cc cell saver , 150cc EBL 03/16 remains in Afib , RVR last pm, started on IV amiodarone , pt was still in afib RVR this am BB added, also cardizem and digoxin / seen by Dr Armijo will need to resume coumadin once chest tubes out / also dc amiodarone once IV amiodarone infused over 24hrs up in chair, on nasal cannula pain controlled HR improved after above meds/ eval for transfer to stepdown 03/17 chest tube drained 140cc/ 12/ then additional 250cc this am / keep chest tube in place mag replaced will need to resume coumadin once chest tube out OOB, ambulate remains in afib rate controlled, amiodarone dc Objective: GENERAL: SKIN: Warm and dry. prevena dressing to chest , incision intact to leg HEAD: Normocephalic. EYES: No scleral icterus. No injection or drainage. NECK: Supple, trachea midline. No JVD or lymphadenopathy. CARDIOVASCULAR: irregular rate and rhythm without murmurs, gallops, or rubs. RESPIRATORY: Breath sounds equal bilaterally. No accessory muscle use. chest tube in place, no air leak GASTROINTESTINAL: Abdomen soft, non-tender, nondistended. MUSCULOSKELETAL: No cyanosis, or edema. BACK: Nontender without obvious deformity. No CVA tenderness. Vital Signs Date Time Temp Pulse Resp B/P (MAP) Pulse Ox O2 Delivery O2 Flow Rate FiO2 03/17/17 15:00 95 Room Air 03/17/17 15:00 97.9 89 16 142/67 (92) 95 03/17/17 15:00 91 03/17/17 14:00 91 03/17/17 13:00 90 03/17/17 12:00 84 03/17/17 11:00 98.3 86 16 145/65 (91) 96 03/17/17 11:00 96 Room Air 03/17/17 11:00 94 03/17/17 10:00 112 03/17/17 09:00 98 03/17/17 08:00 97 03/17/17 07:45 95 21 03/17/17 07:00 97.8 103 18 149/65 (93) 95 03/17/17 07:00 95 Room Air 03/17/17 06:00 80 03/17/17 05:05 85 03/17/17 04:13 82 03/17/17 03:42 97 Room Air 03/17/17 03:42 98.3 85 20 109/56 (73) 97 03/17/17 03:08 85 03/17/17 02:23 87 03/17/17 01:00 93 03/17/17 00:00 99 03/16/17 23:20 97.7 94 22 141/72 (95) 97 03/16/17 23:20 97 Room Air 03/16/17 23:00 86 03/16/17 22:00 96 03/16/17 21:33 86 123/75 03/16/17 21:12 97 Nasal Cannula 2.00 03/16/17 21:00 84 03/16/17 20:15 97.6 86 20 123/75 (91) 95 03/16/17 20:15 95 Room Air 03/16/17 20:00 86 03/16/17 19:00 81 03/16/17 17:51 102 16 158/79 (105) 92 Result Diagram: 03/17/178 03/17/178 Telemetry: afib (1) Coronary artery disease (2) S/P CABG x 2 Plan: ASA, , BB resume niacin on discharge meds and fish oil intolerant to statins / pulm toileting dc albuterol, Atrovent only 2/2 afib OOB, ambulate (3) Hyperlipemia Plan: pt on fish oil and niacin at home resume at discharge (4) Hypertension Plan: controlled (5) Chronic a-fib Plan: resume coumadin when chest tube out on digoxin, BB, amiodarone and cardizem dc amiodarone gtt in am Kandice Snyder Mar 17, 2017 17:40
[2017-03-17] MEDS: METOPROLOL TARTRATE 50 MG TAB PO SCH ×2 (21:00→22:04)
[2017-03-17] MEDS: SENNOSIDES 8.6 MG TAB PO SCH (22:04)
[2017-03-18] VITALS (26 sets, daily range): BP systolic 118–156; BP diastolic 58–69; PULSE 67–112; RESP 16–20; TEMP 97.8–98.2; O2SAT 93–96
[2017-03-18] MEDS: INSULIN ASPART SUPPLEMENTAL SCALE SQ SCH ×3 (01:44→12:00)
[2017-03-18 04:24] LABS: BICARBONATE 27.1 MEQ/L (21.0-32.0)
[2017-03-18 04:45] LABS: INTERNATIONAL NORMALIZED RATIO 1.2 RATIO
[2017-03-18 04:56] LABS: AUTOMATED NEUTROPHIL # 8.9 TH/MM3 (1.8-7.7); BASOPHIL % 0.1 % (0.0-2.0); HEMATOCRIT 32.1 % (39.0-51.0); LYMPHOCYTE # 0.9 TH/MM3 (1.0-4.8); MEAN CELL VOLUME 90.7 FL (80.0-100.0); MEAN CORPUSCULAR HEMOGLOBIN 31.4 PG (27.0-34.0); MEAN CORPUSCULAR HGB CONC 34.6 % (32.0-36.0); MONO % 11.9 % (0.0-8.0); PLATELET COUNT 94 TH/MM3 (150-450); RED BLOOD COUNT 3.54 MIL/MM3 (4.50-5.90); WHITE BLOOD COUNT 11.1 TH/MM3 (4.0-11.0)
[2017-03-18 05:31] LABS: HEMO FLAGS AUTO DIFF
[2017-03-18] MEDS: DILTIAZEM HCL 60 MG TAB PO SCH ×4 (05:48→23:49)
[2017-03-18] MEDS: PANTOPRAZOLE SOD 40 MG DELAYED RELEASE TAB PO SCH (05:48)
[2017-03-18] MEDS: RESP: IPRATROPIUM 0.5 MG/2.5 ML NEB NEB SCH ×2 (08:15→20:32)
--- NOTE | 2017-03-18 08:42 | PD.CAR.PN ---
CVT Progress Note CVT: POD #: 3 Subjective/Hospital Course: A 76-year-old male, with recent complaint of some chest tightness, fatigue off and on since November. He thought that it was some heat exhaustion but it has been going on since. He has seen Dr. Armijo in the past for chronic atrial fibrillation and has been on Coumadin. Because of the history of shortness of breath he underwent cardiac catheterization which showed an ejection fraction of 25%, proximal left anterior descending 90%. The diagonal 90%. The circ 30% . The obtuse marginal had 75% stenosis. We were consulted to evaluate for coronary artery bypass grafting. He underwent a 2-D echo prior to his cath this morning which showed an ejection fraction of 25-30%, diffuse global hypokinesis, left atrial size moderately dilated. The right atrial size moderately dilated, moderate mitral regurgitation, mild tricuspid regurgitation. PAST MEDICAL HISTORY: chronic atrial fibrillation on Coumadin, CAD , Chronic kidney disease stage 2-3 , Cardiomyopathy, Hypertension, Hyperlipidemia surgery 03/15 . Urgent Off-pump Coronary Artery Bypass Grafting x 2 with Left Internal Mammary Artery (TORRES) to the Left Anterior Descending (LAD), reverse saphenous vein graft to the Diagonal 1, Left Leg Endoscopic Vein [place], Left Atrial Appendage Excision, Intraoperative Vein Mapping, Attempted Synchronized Cardioversion extubated after surgery crystalloid 2900cc/ 450cc cell saver , 150cc EBL 03/16 remains in Afib , RVR last pm, started on IV amiodarone , pt was still in afib RVR this am BB added, also cardizem and digoxin / seen by Dr Armijo will need to resume coumadin once chest tubes out / also dc amiodarone once IV amiodarone infused over 24hrs up in chair, on nasal cannula pain controlled HR improved after above meds/ eval for transfer to stepdown 03/17 chest tube drained 140cc/ 12/ then additional 250cc this am / keep chest tube in place mag replaced will need to resume coumadin once chest tube out OOB, ambulate remains in afib rate controlled, amiodarone dc 03/18/17 No complaints, doing well Objective: Vital Signs Date Time Temp Pulse Resp B/P (MAP) Pulse Ox O2 Delivery O2 Flow Rate FiO2 03/18/17 08:17 94 03/18/17 08:00 95 Room Air 03/18/17 08:00 89 03/18/17 08:00 98.0 84 17 156/69 (98) 94 03/18/17 07:00 99 03/18/17 06:20 91 03/18/17 05:02 100 03/18/17 04:02 94 03/18/17 03:15 95 Room Air 03/18/17 03:14 98.2 86 18 138/69 (92) 95 03/18/17 03:12 112 03/18/17 02:11 91 03/18/17 01:05 91 03/18/17 00:08 94 03/17/17 23:00 98.0 89 17 122/65 (84) 94 03/17/17 23:00 101 03/17/17 23:00 94 Room Air 03/17/17 22:36 18 03/17/17 22:09 94/66 (75) 03/17/17 22:00 115 03/17/17 21:00 100 03/17/17 20:25 95 21 03/17/17 20:00 98 03/17/17 19:38 95 Room Air 03/17/17 19:28 98.4 98 17 119/65 (83) 95 03/17/17 19:00 103 03/17/17 18:00 94 03/17/17 17:00 81 03/17/17 16:00 76 03/17/17 15:00 95 Room Air 03/17/17 15:00 97.9 89 16 142/67 (92) 95 03/17/17 15:00 91 03/17/17 14:00 91 03/17/17 13:00 90 03/17/17 12:00 84 03/17/17 11:00 98.3 86 16 145/65 (91) 96 03/17/17 11:00 96 Room Air 03/17/17 11:00 94 03/17/17 10:00 112 03/17/17 09:00 98 Labs: Laboratory Tests Test 03/18/17 03:36 White Blood Count 11.1 TH/MM3 (4.0-11.0) Red Blood Count 3.54 MIL/MM3 (4.50-5.90) Hemoglobin 11.1 GM/DL (13.0-17.0) Hematocrit 32.1 % (39.0-51.0) Mean Corpuscular Volume 90.7 FL (80.0-100.0) Mean Corpuscular Hemoglobin 31.4 PG (27.0-34.0) Mean Corpuscular Hemoglobin Concent 34.6 % (32.0-36.0) Red Cell Distribution Width 14.0 % (11.6-17.2) Platelet Count 94 TH/MM3 (150-450) Mean Platelet Volume 10.2 FL (7.0-11.0) Neutrophils (%) (Auto) 80.0 % (16.0-70.0) Lymphocytes (%) (Auto) 8.0 % (9.0-44.0) Monocytes (%) (Auto) 11.9 % (0.0-8.0) Eosinophils (%) (Auto) 0.0 % (0.0-4.0) Basophils (%) (Auto) 0.1 % (0.0-2.0) Neutrophils # (Auto) 8.9 TH/MM3 (1.8-7.7) Lymphocytes # (Auto) 0.9 TH/MM3 (1.0-4.8) Monocytes # (Auto) 1.3 TH/MM3 (0-0.9) Eosinophils # (Auto) 0.0 TH/MM3 (0-0.4) Basophils # (Auto) 0.0 TH/MM3 (0-0.2) CBC Comment AUTO DIFF Prothrombin Time 13.0 SEC (9.8-11.6) Prothromb Time International Ratio 1.2 RATIO Blood Urea Nitrogen 20 MG/DL (7-18) Creatinine 1.55 MG/DL (0.60-1.30) Random Glucose 120 MG/DL (74-106) Calcium Level 7.8 MG/DL (8.5-10.1) Sodium Level 130 MEQ/L (136-145) Potassium Level 5.0 MEQ/L (3.5-5.1) Chloride Level 95 MEQ/L (98-107) Carbon Dioxide Level 27.1 MEQ/L (21.0-32.0) Anion Gap 8 MEQ/L (5-15) Estimat Glomerular Filtration Rate 44 ML/MIN (>89) Result Diagram: 03/18/17 0336 03/18/17 0336 Cardiovascular: RRR Telemetry: NSR Pulmonary: CTA GI/: NABS, NT Incision: dry and intact CT: 150ml/12hrs Plan: Continue chest tubes Diurese Encourage ambulation, up to chair, ambulate (1) Coronary artery disease (2) S/P CABG x 2 Plan: ASA, , BB resume niacin on discharge meds and fish oil intolerant to statins / pulm toileting dc albuterol, Atrovent only 2/2 afib OOB, ambulate (3) Hyperlipemia Plan: pt on fish oil and niacin at home resume at discharge (4) Hypertension Plan: controlled (5) Chronic a-fib Plan: resume coumadin when chest tube out on digoxin, BB, amiodarone and cardizem dc amiodarone gtt in am Adriana Snyder MD Mar 18, 2017 08:42
[2017-03-18] MEDS: CLOPIDOGREL 75 MG TAB PO SCH (08:49)
[2017-03-18] MEDS: SODIUM CHLORIDE 0.9% FLUSH 10 ML FLUSH IV FLUSH SCH ×2 (08:50→20:53)
[2017-03-18] MEDS: ASPIRIN 81 MG CHEW TAB PO SCH (08:50)
[2017-03-18] MEDS: DOCUSATE SODIUM 100 MG CAP PO SCH ×2 (08:50→20:53)
[2017-03-18] MEDS: MULTIVITAMINS/MINERALS THERAPEUTIC TAB PO SCH (08:51)
[2017-03-18] MEDS: METOPROLOL TARTRATE 50 MG TAB PO SCH ×2 (08:51→20:53)
[2017-03-18] MEDS: DIGOXIN 0.125 MG TAB PO SCH (08:51)
[2017-03-18] MEDS: MAGNESIUM HYDROXIDE SUSP 30 ML CUP PO SCH (08:51)
[2017-03-18] MEDS: POLYETHYLENE GLYCOL 17 GM PKG PO SCH (08:51)
[2017-03-18] MEDS: FUROSEMIDE 40 MG/4 ML VIAL IV PUSH SCH ×2 (08:53→17:20)
[2017-03-18 09:59] LABS: PLATELET ESTIMATE SMEAR LOW (NORMAL); PLATELET MORPHOLOGY NORMAL (NORMAL); SCAN/DIFF AUTO DIFF CONFIRMED
--- NOTE | 2017-03-18 12:16 | EKG ---
Date Performed: 03/18/2017 Time Performed: 06:27:22 PTAGE: 76 years EKG: Atrial fibrillation with rapid ventricular response Nonspecific ST-T wave change Possible L VH Compared to previous tracing, ST-T changes have generally improved. They were more markedly abnorm al on the previous tracing. Abnormal ECG PREVIOUS TRACING : 03/16/2017 05.16 DOCTOR: Marek Coyle Interpretating Date/Time 03/18/2017 12:15:16
[2017-03-18] MEDS: ENOXAPARIN SODIUM 40 MG/0.4 ML SYRINGE SQ SCH ×2 (12:34→23:49)
[2017-03-18] MEDS: SENNOSIDES 8.6 MG TAB PO SCH (20:53)
[2017-03-19] VITALS (24 sets, daily range): BP systolic 107–135; BP diastolic 58–68; PULSE 81–109; RESP 16–20; TEMP 97.8–98.5; O2SAT 94–97
[2017-03-19] MEDS: PANTOPRAZOLE SOD 40 MG DELAYED RELEASE TAB PO SCH (05:36)
[2017-03-19] MEDS: DILTIAZEM HCL 60 MG TAB PO SCH ×4 (05:36→23:53)
[2017-03-19 05:49] LABS: INTERNATIONAL NORMALIZED RATIO 1.1 RATIO; PROTHROMBIN TIME - PATIENT 12.1 SEC (9.8-11.6)
[2017-03-19] MEDS: ASPIRIN 81 MG CHEW TAB PO SCH (09:00)
[2017-03-19] MEDS: POLYETHYLENE GLYCOL 17 GM PKG PO SCH (09:00)
[2017-03-19] MEDS: MAGNESIUM HYDROXIDE SUSP 30 ML CUP PO SCH (09:00)
[2017-03-19] MEDS: CLOPIDOGREL 75 MG TAB PO SCH (09:00)
[2017-03-19] MEDS: DOCUSATE SODIUM 100 MG CAP PO SCH ×2 (09:00→21:23)
[2017-03-19] MEDS: SODIUM CHLORIDE 0.9% FLUSH 10 ML FLUSH IV FLUSH SCH ×2 (09:01→21:00)
[2017-03-19] MEDS: FUROSEMIDE 40 MG/4 ML VIAL IV PUSH SCH ×2 (09:01→17:06)
[2017-03-19] MEDS: METOPROLOL TARTRATE 50 MG TAB PO SCH ×2 (09:02→21:23)
[2017-03-19] MEDS: DIGOXIN 0.125 MG TAB PO SCH (09:02)
[2017-03-19] MEDS: MULTIVITAMINS/MINERALS THERAPEUTIC TAB PO SCH (09:02)
[2017-03-19] MEDS: RESP: IPRATROPIUM 0.5 MG/2.5 ML NEB NEB SCH ×2 (09:50→21:08)
--- NOTE | 2017-03-19 11:56 | PD.CAR.PN ---
CVT Progress Note CVT: POD #: 4 Subjective/Hospital Course: A 76-year-old male, with recent complaint of some chest tightness, fatigue off and on since November. He thought that it was some heat exhaustion but it has been going on since. He has seen Dr. Armijo in the past for chronic atrial fibrillation and has been on Coumadin. Because of the history of shortness of breath he underwent cardiac catheterization which showed an ejection fraction of 25%, proximal left anterior descending 90%. The diagonal 90%. The circ 30% . The obtuse marginal had 75% stenosis. We were consulted to evaluate for coronary artery bypass grafting. He underwent a 2-D echo prior to his cath this morning which showed an ejection fraction of 25-30%, diffuse global hypokinesis, left atrial size moderately dilated. The right atrial size moderately dilated, moderate mitral regurgitation, mild tricuspid regurgitation. PAST MEDICAL HISTORY: chronic atrial fibrillation on Coumadin, CAD , Chronic kidney disease stage 2-3 , Cardiomyopathy, Hypertension, Hyperlipidemia surgery 03/15 . Urgent Off-pump Coronary Artery Bypass Grafting x 2 with Left Internal Mammary Artery (TORRES) to the Left Anterior Descending (LAD), reverse saphenous vein graft to the Diagonal 1, Left Leg Endoscopic Vein [place], Left Atrial Appendage Excision, Intraoperative Vein Mapping, Attempted Synchronized Cardioversion extubated after surgery crystalloid 2900cc/ 450cc cell saver , 150cc EBL 03/16 remains in Afib , RVR last pm, started on IV amiodarone , pt was still in afib RVR this am BB added, also cardizem and digoxin / seen by Dr Armijo will need to resume coumadin once chest tubes out / also dc amiodarone once IV amiodarone infused over 24hrs up in chair, on nasal cannula pain controlled HR improved after above meds/ eval for transfer to stepdown 03/17 chest tube drained 140cc/ 12/ then additional 250cc this am / keep chest tube in place mag replaced will need to resume coumadin once chest tube out OOB, ambulate remains in afib rate controlled, amiodarone dc 03/18/17 No complaints, doing well 03/19/17 No complaints today. Drained 260ml/24hrs. Objective: Vital Signs Date Time Temp Pulse Resp B/P (MAP) Pulse Ox O2 Delivery O2 Flow Rate FiO2 03/19/17 11:00 91 03/19/17 10:00 84 03/19/17 09:00 81 03/19/17 08:00 100 03/19/17 08:00 98.0 100 18 116/62 (80) 95 03/19/17 07:00 101 03/19/17 06:00 104 03/19/17 05:00 89 03/19/17 04:00 95 03/19/17 03:30 98.4 107 17 107/64 (78) 94 03/19/17 03:00 92 03/19/17 01:00 96 03/18/17 23:00 97.8 93 17 125/58 (80) 95 03/18/17 23:00 96 03/18/17 22:00 82 03/18/17 20:33 93 21 03/18/17 19:00 104 03/18/17 19:00 97.8 105 16 119/59 (79) 95 03/18/17 18:00 90 03/18/17 17:00 88 03/18/17 16:00 90 03/18/17 15:44 96 Room Air 03/18/17 15:41 97.9 91 20 138/62 (87) 94 03/18/17 15:00 94 03/18/17 14:00 90 03/18/17 13:00 88 03/18/17 12:00 98.1 91 20 128/64 (85) 96 03/18/17 12:00 96 Room Air 03/18/17 12:00 92 Labs: Laboratory Tests Test 03/19/17 04:50 Prothrombin Time 12.1 SEC (9.8-11.6) Prothromb Time International Ratio 1.1 RATIO Result Diagram: 03/18/1733503/18/17335 Cardiovascular: Irreg Telemetry: Afib Pulmonary: CTA GI/: NABS, NT Incision: dry and intact CT: 260ml/24 hrs Plan: Still up ~5.5 kg Diurese continue chest tubes Hope to remove tubes in AM and d/c. Encourage ambulation, up to chair CXR in AM Coumadin/INR (1) Coronary artery disease (2) S/P CABG x 2 Plan: ASA, , BB resume niacin on discharge meds and fish oil intolerant to statins / pulm toileting dc albuterol, Atrovent only 2/2 afib OOB, ambulate (3) Hyperlipemia Plan: pt on fish oil and niacin at home resume at discharge (4) Hypertension Plan: controlled (5) Chronic a-fib Plan: resume coumadin when chest tube out on digoxin, BB, amiodarone and cardizem dc amiodarone gtt in am Adriana Snyder MD Mar 19, 2017 11:56
[2017-03-19] MEDS: ENOXAPARIN SODIUM 40 MG/0.4 ML SYRINGE SQ SCH ×2 (11:59→22:57)
[2017-03-19] MEDS ORDERED: WARFARIN SOD 5 MG TAB PO SCH (16:00)
[2017-03-19] MEDS: SENNOSIDES 8.6 MG TAB PO SCH (21:23)
[2017-03-20] VITALS (17 sets, daily range): BP systolic 110–124; BP diastolic 59–67; PULSE 86–112; RESP 14–18; TEMP 98.4–98.8; O2SAT 95–97
[2017-03-20 04:59] LABS: HEMATOCRIT 31.2 % (39.0-51.0); MEAN CELL VOLUME 90.7 FL (80.0-100.0); MEAN CORPUSCULAR HEMOGLOBIN 31.6 PG (27.0-34.0); MEAN CORPUSCULAR HGB CONC 34.8 % (32.0-36.0); PLATELET COUNT 151 TH/MM3 (150-450); RED BLOOD COUNT 3.44 MIL/MM3 (4.50-5.90); RED CELL DISTRIBUTION WIDTH 13.6 % (11.6-17.2); REVIEW FLAG FINAL; WHITE BLOOD COUNT 8.1 TH/MM3 (4.0-11.0)
[2017-03-20 05:04] LABS: PROTHROMBIN TIME - PATIENT 11.6 SEC (9.8-11.6)
[2017-03-20] MEDS: DILTIAZEM HCL 60 MG TAB PO SCH ×2 (05:46→12:13)
[2017-03-20] MEDS: PANTOPRAZOLE SOD 40 MG DELAYED RELEASE TAB PO SCH (05:47)
--- NOTE | 2017-03-20 06:23 | RADRPT ---
EXAM DATE/TIME: 03/20/2017 05:09 [facility] COMPARISON: CHEST SINGLE AP, March 16, 2017, 4:33. INDICATIONS : Short of breath. MEDICAL HISTORY : Hypertension. Congestive heart failure. A-Fib SURGICAL HISTORY : CABG. ENCOUNTER: Subsequent ACUITY: 2 weeks PAIN SCORE: 0/10 LOCATION: Bilateral chest FINDINGS: A single view of the chest demonstrates the left-sided chest tube and numerous sternal wires are stab le. The central line seen previously has been removed. Mediastinal drain remains. No evidence of pneu mothorax. Lungs are grossly clear.. The cardiomediastinal contours are unremarkable. Osseous struct ures are intact. CONCLUSION: No concerning infiltrate or mass. The chest tube is in good position. Gallito Hitchcock MD on March 20, 2017 at 6:20 Board Certified Radiologist. This report was verified electronically.
[2017-03-20] MEDS: POLYETHYLENE GLYCOL 17 GM PKG PO SCH (09:00)
[2017-03-20] MEDS: MAGNESIUM HYDROXIDE SUSP 30 ML CUP PO SCH (09:00)
[2017-03-20] MEDS: METOPROLOL TARTRATE 50 MG TAB PO SCH (09:02)
[2017-03-20] MEDS: CLOPIDOGREL 75 MG TAB PO SCH (09:02)
[2017-03-20] MEDS: DOCUSATE SODIUM 100 MG CAP PO SCH (09:03)
[2017-03-20] MEDS: ASPIRIN 81 MG CHEW TAB PO SCH (09:03)
[2017-03-20] MEDS: SODIUM CHLORIDE 0.9% FLUSH 10 ML FLUSH IV FLUSH SCH (09:03)
[2017-03-20] MEDS: MULTIVITAMINS/MINERALS THERAPEUTIC TAB PO SCH (09:03)
[2017-03-20] MEDS: DIGOXIN 0.125 MG TAB PO SCH (09:03)
[2017-03-20] MEDS: RESP: IPRATROPIUM 0.5 MG/2.5 ML NEB NEB SCH (09:08)
[2017-03-20] MEDS ORDERED: DIGO0.12 PO (11:46)
[2017-03-20] MEDS ORDERED: CARD240C6 PO (11:46)
[2017-03-20] MEDS ORDERED: NORC5TAB PO (11:46)
[2017-03-20] MEDS ORDERED: DOCU1CAP39 PO (11:46)
[2017-03-20] MEDS ORDERED: THERM PO (11:46)
--- NOTE | 2017-03-20 12:01 | HHI.DS ---
Discharge Summary Admission Date Mar 14, 2017 at 18:34 Discharge Date: Mar 20, 2017 Admitting Diagnosis chest pain CAD (1) Coronary artery disease Diagnosis: Principal ICD Codes: I25.10 - Atherosclerotic heart disease of [place] coronary artery without angina pectoris (2) Hyperlipemia Diagnosis: Principal ICD Codes: E78.5 - Hyperlipidemia, unspecified (3) Hypertension Diagnosis: Principal ICD Codes: I10 - Essential (primary) hypertension (4) Chronic a-fib Diagnosis: Principal ICD Codes: I48.2 - Chronic atrial fibrillation (5) S/P CABG x 2 Diagnosis: Secondary ICD Codes: Z95.1 - Presence of aortocoronary bypass graft Procedures 03/15 1. Urgent Off-pump Coronary Artery Bypass Grafting x 2 with Left Internal Mammary Artery (TORRES) to the Left Anterior Descending (LAD), reverse saphenous vein graft to the Diagonal 1 2. Left Leg Endoscopic Vein [place] 3. Left Atrial Appendage Excision 4. Intraoperative Vein Mapping 5. Attempted Synchronized Cardioversion Brief History A 76-year-old male, with recent complaint of some chest tightness, fatigue off and on since November. He thought that it was some heat exhaustion but it has been going on since. He has seen Dr. Armijo in the past for chronic atrial fibrillation and has been on Coumadin. Because of the history of shortness of breath he underwent cardiac catheterization which showed an ejection fraction of 25%, proximal left anterior descending 90%. The diagonal 90%. The circ 30% . The obtuse marginal had 75% stenosis. We were consulted to evaluate for coronary artery bypass grafting. He underwent a 2-D echo prior to his cath this morning which showed an ejection fraction of 25-30%, diffuse global hypokinesis, left atrial size moderately dilated. The right atrial size moderately dilated, moderate mitral regurgitation, mild tricuspid regurgitation. PAST MEDICAL HISTORY: chronic atrial fibrillation on Coumadin, CAD , Chronic kidney disease stage 2-3 , Cardiomyopathy, Hypertension, Hyperlipidemia CBC/BMP: 03/20/17 0434 03/18/17 0336 Significant Findings Laboratory Tests Test 03/18/17 03:36 03/19/17 04:50 03/20/17 04:34 White Blood Count 11.1 TH/MM3 (4.0-11.0) Red Blood Count 3.54 MIL/MM3 (4.50-5.90) 3.44 MIL/MM3 (4.50-5.90) Hemoglobin 11.1 GM/DL (13.0-17.0) 10.9 GM/DL (13.0-17.0) Hematocrit 32.1 % (39.0-51.0) 31.2 % (39.0-51.0) Platelet Count 94 TH/MM3 (150-450) Neutrophils (%) (Auto) 80.0 % (16.0-70.0) Lymphocytes (%) (Auto) 8.0 % (9.0-44.0) Monocytes (%) (Auto) 11.9 % (0.0-8.0) Neutrophils # (Auto) 8.9 TH/MM3 (1.8-7.7) Lymphocytes # (Auto) 0.9 TH/MM3 (1.0-4.8) Monocytes # (Auto) 1.3 TH/MM3 (0-0.9) Platelet Estimate LOW (NORMAL) Prothrombin Time 13.0 SEC (9.8-11.6) 12.1 SEC (9.8-11.6) Blood Urea Nitrogen 20 MG/DL (7-18) Creatinine 1.55 MG/DL (0.60-1.30) Random Glucose 120 MG/DL (74-106) Calcium Level 7.8 MG/DL (8.5-10.1) Sodium Level 130 MEQ/L (136-145) Chloride Level 95 MEQ/L (98-107) Estimat Glomerular Filtration Rate 44 ML/MIN (>89) Imaging Last Impressions Chest X-Ray 03/20/17 0600 Signed Impressions: Service Date/Time: Monday, March 20, 2017 05:09 - CONCLUSION: No concerning infiltrate or mass. The chest tube is in good position. Gallito Hitchcock MD Lower Extremity Ultrasound 03/14/17 0000 Signed Impressions: Service Date/Time: Tuesday, March 14, 2017 11:43 - CONCLUSION: Venous mapping as above Jaswinder Rubi MD Carotid Artery Ultrasound 03/14/17 0000 Signed Impressions: Service Date/Time: Tuesday, March 14, 2017 11:22 - CONCLUSION: 1. There is mild atherosclerotic plaquing bilaterally. 2. No focal high-grade or hemodynamically significant stenosis is demonstrated. Jaswinder Rubi MD PE at Discharge GENERAL: SKIN: Warm and dry. prevena dressing to chest, incision intact to left leg HEAD: Normocephalic. EYES: No scleral icterus. No injection or drainage. NECK: Supple, trachea midline. No JVD or lymphadenopathy. CARDIOVASCULAR: Regular rate and rhythm without murmurs, gallops, or rubs. RESPIRATORY: Breath sounds equal bilaterally. No accessory muscle use. GASTROINTESTINAL: Abdomen soft, non-tender, nondistended. MUSCULOSKELETAL: No cyanosis, or edema. BACK: Nontender without obvious deformity. No CVA tenderness. Hospital Course surgery 03/15 . Urgent Off-pump Coronary Artery Bypass Grafting x 2 with Left Internal Mammary Artery (TORRES) to the Left Anterior Descending (LAD), reverse saphenous vein graft to the Diagonal 1, Left Leg Endoscopic Vein [place], Left Atrial Appendage Excision, Intraoperative Vein Mapping, Attempted Synchronized Cardioversion extubated after surgery crystalloid 2900cc/ 450cc cell saver , 150cc EBL 03/16 remains in Afib , RVR last pm, started on IV amiodarone , pt was still in afib RVR this am BB added, also cardizem and digoxin / seen by Dr Armijo will need to resume coumadin once chest tubes out / also dc amiodarone once IV amiodarone infused over 24hrs up in chair, on nasal cannula pain controlled HR improved after above meds/ eval for transfer to stepdown 03/17 chest tube drained 140cc/ 12/ then additional 250cc this am / keep chest tube in place mag replaced will need to resume coumadin once chest tube out OOB, ambulate remains in afib rate controlled, amiodarone dc 03/18/17 No complaints, doing well 03/19/17 No complaints today. Drained 260ml/24hrs. 03/20 chest tube drained 30cc/ 12 hrs dc without difficulty on room air discussed dc meds with Dr Armijo intolerant to statins will dc after CXR completed and stable check BMP and dig level Pt Condition on Discharge: Good Discharge Disposition: Disch w/ Home Health Serv Discharge Instructions DIET: Follow Instructions for: Heart Healthy Diet, Coumadin (Warfarin) Diet Activities you can perform: Full Weight Bearing, Shower Only-No Bath Activities to avoid: Strenuous Activity, Shower Additional Activity Instructio: no lifting > 8 lbs or gallon of milk Follow up Referrals: Cardiology with Gallito Armijo MD Cardiology PCP Follow-up with Chris Angela MD Surgical with Chaz Callejas MD New Orders: PT/INR - 2-3 Days New Medications: Diltiazem CD 24 HR (Cardizem CD 24 HR) 240 Mg Caper 240 MG PO DAILY for heart rhythm, #30 CAP 2 Refills Hydrocodone-Acetaminophen ([place]) 5 Mg-325 Mg Tab 1 TAB PO Q6H PRN for PAIN, #40 TAB 0 Refills Digoxin (Digoxin) 0.125 Mg Tab 0.125 MG PO DAILY for heart rhythm, #30 TAB 2 Refills Docusate Sodium (Dok) 100 Mg Cap 100 MG PO BID for Constipation, #60 CAP 0 Refills Multiple Vitamins W/ Minerals (Thera M Plus) 1 Tab 1 TAB PO DAILY for multi vitamin, #30 TAB Continued Medications: Acetaminophen (Tylenol) 325 Mg Tab 650 MG PO Q6H PRN for PAIN SCALE 1 TO 7, TAB 0 Refills Aspirin (Aspirin) 81 Mg Chew 81 MG CHEW DAILY, TAB 0 Refills Fish Oil-Cholecalciferol ([place]-3 Fish Oil/Vitamin) 1,000-1,000 Mg Cap 1 CAP PO DAILY for Nutritional Supplement, CAP 0 Refills Metoprolol Tartrate (Metoprolol Tartrate) 50 Mg Tab 50 MG PO BID, TAB 0 Refills Niacin (Niacin) 500 Mg Tab 500 MG PO TID for Cholesterol Management, TAB 0 Refills Ranitidine (Ranitidine) 150 Mg Tab 150 MG PO BID for Heartburn Management, TAB 0 Refills Warfarin (Warfarin) 5 Mg Tab 5 MG PO DIRECTED for Blood Clot Prevention, TAB 0 Refills Kandice Snyder Mar 20, 2017 12:00
--- NOTE | 2017-03-20 12:13 | RADRPT ---
EXAM DATE/TIME: 03/20/2017 11:36 [facility] COMPARISON: CHEST SINGLE AP, March 20, 2017, 5:09. INDICATIONS : Removal of chest tube; evaluate for pneumothorax. MEDICAL HISTORY : Hypertension. Congestive heart failure. A-Fib. Hyperlipidemia. SURGICAL HISTORY : CABG. Heart catheteriazation ENCOUNTER: Subsequent ACUITY: 1 day PAIN SCORE: 0/10 LOCATION: Bilateral chest FINDINGS: Postoperative median sternotomy. Cardiomegaly. No pneumothorax with chest tube removal. Minimal basil ar airspace disease which may represent atelectasis. CONCLUSION: 1. Chest tube removal without pneumothorax. Cardiomegaly with mild basilar atelectasis. Yehuda Pimentel MD on March 20, 2017 at 12:10 Board Certified Radiologist. This report was verified electronically.
[2017-03-20] MEDS ORDERED: FUROSEMIDE 40 MG TAB PO ONE (12:15)
[2017-03-20 13:31] LABS: BICARBONATE 28.8 MEQ/L (21.0-32.0); POTASSIUM 3.7 MEQ/L (3.5-5.1)
[2017-03-20] MEDS ORDERED: POTASSIUM CHLORIDE 20 MEQ CONTROLLED RELEASE TAB PO ONE (14:30)
== END 2017-03-20 15:20 | disposition home health service (06) | DRG 234 ==
LOC: HECH 05:55 → HDIC 05:59 → HCIS 13:07 → HECH 18:29 → HCIS 18:34 → HCVI 03-15 09:50 → HCPC 03-16 17:33
PROVIDERS: ADMIT Internal Medicine; ATTEND Thoracic Surgery (Cardiothoracic Vascular Surgery)
PROC: 4A023N7 Measurement of Cardiac Sampling and Pressure, Left Heart, Percutaneous Approach (ICD-10-PCS; 2017-03-14)
PROC: B2111ZZ Fluoroscopy of Multiple Coronary Arteries using Low Osmolar Contrast (ICD-10-PCS; 2017-03-14)
PROC: 021009W Bypass Coronary Artery, One Artery from Aorta with Autologous Venous Tissue, Open Approach (ICD-10-PCS; 2017-03-15)
PROC: 06BQ4ZZ Excision of Left Saphenous Vein, Percutaneous Endoscopic Approach (ICD-10-PCS; 2017-03-15)
PROC: 02B70ZK Excision of Left Atrial Appendage, Open Approach (ICD-10-PCS; 2017-03-15)
PROC: 02100Z9 Bypass Coronary Artery, One Artery from Left Internal Mammary, Open Approach (ICD-10-PCS; principal; 2017-03-15 12:00)
DX: I25.110 Atherosclerotic heart disease of native coronary artery with unstable angina pectoris (principal); I42.9 Cardiomyopathy, unspecified; I48.2 Chronic atrial fibrillation; I12.9 Hypertensive chronic kidney disease with stage 1 through stage 4 chronic kidney disease, or unspecified chronic kidney disease; E78.5 Hyperlipidemia, unspecified; N18.2 Chronic kidney disease, stage 2 (mild); I08.1 Rheumatic disorders of both mitral and tricuspid valves; Z79.01 Long term (current) use of anticoagulants; Z87.891 Personal history of nicotine dependence
CPT/HCPCS: 36430; 71010; 71020; 80048; 80053; 80162; 81001; 82948; 83036; 83735; 85025; 85027; 85610; 85730; 86850; 86900; 86901; 86920; 87641; 88305; 93005; 93306; 93458; 93880; 93970; 93998; 94002; 94010; 94150; 94640; 94664; 94667; 94668; C1760; C1769; C1893; J0131; J0171; J0282; J0461; J0690; J1160; J1644; J1650; J1815; J1817; J1940; J2250; J2270; J2370; J2440; J3010; J3370; J3475; J3480; J7060; J7644; P9016; Q9967